=== PATIENT | male | born 1950 | race Caucasian/White ===

== ENCOUNTER 2019-01-07 20:14 | Inpatient (IN) ==
[2019-01-07] MEDS ORDERED: SOLU-Medrol 40 MG VIAL IM ONE (20:32)
[2019-01-07] MEDS ORDERED: DUONEB 0.5 MG/3 MG NEB ONE (20:32)
[2019-01-07] MEDS ORDERED: SOLU-Medrol 40 MG VIAL ONE (20:38)
--- NOTE | 2019-01-07 20:42 | DR.SOBA ---
HPI Time Seen Time Seen by Provider: 01/07/19 20:25 Primary Care Physician Primary Care Physician: RAFAEL TRACY Complaints Chief Complaint Doctors Comments: a 68 Y/O male presenting with worsening SOB since 2 days ago. He denies cough or fever. He states he feels week. He admits to 2 tarry stools in last 2 days. He denies dizziness. Chief Complaint:: PT STATED HE HAS EVERDAY SINUS ISSUES. SINCE WENSDAY OF THIS WEEK HE HAS BEEN HAVING PRESSURE IN HIS CHEST AND SOB. HE STATED TODAY THE SYMPTOMS HAVE WORSEN. Reviewed Nurses Notes Reviewed: Yes Source History Provided: Patient Mode of Arrival Mode of Arrival: Wheelchair Timing Onset of Chief Complaint: 12/28/18 Context Onset:: With Light Exertion PE Risk Factors:: None History of:: None Currently on:: Neither Prehospital Care:: None Modifying Factors Worsens:: Exertion Improves:: Rest Associated Signs and Symptoms Associated Signs and Symptoms: None PMH PMH Past Medical History: Yes Past Medical History: Arthritis and Hypertension Past Surgical History: Yes Past Surgical History Comment: HEART CATHERIZATION Family History History of Family Medical Conditions: Yes Family Medical History: Hypertension Social History Does patient currently use any type of tobacco product: Yes Have you used tobacco products in the last 12 months: Yes Type of Tobacco Use: Cigarettes Does any household member use tobacco: No Alcohol Use: Occasionally Do you use any recreational Drugs:: No Lives With: Spouse Lives Where: Home infectious screening In the last 2 months have you had wt loss of >10#?: NO Have you had fever, night sweats or hemotysis?: No Have you traveled outside the country in the last 6 months?: No Isolation: Standard ROS Review of Systems Constitutional: No Symptoms Reported Eyes: No Symptoms Reported ENTM: No Symptoms Reported Respiratoy: Short of Breath Cardiovascular: No Symptoms Reported Gastrointestinal/Abdominal: No Symptoms Reported Genitourinary: No Symptoms Reported Neurological: No Symptoms Reported Musculoskeletal: No Symptoms Reported Integumentary: No Symptoms Reported Hematologic/Lymphatic: No Symptoms Reported Endocrine: No Symptoms Reported Psychiatric: No Symptoms Reported PE Vital Signs Vitals: Temperature 97.9 F Pulse Rate 77 Respiratory Rate 20 Blood Pressure 168/79 O2 Sat by Pulse Oximetry 100 General Limitations: No Limitations General Appearance: Alert and In No Apparent Distress Head Head Exam: Normal Inspection, Atraumatic and Normocephalic Eyes Eye exam: Normal Appearance and EOMI ENT ENT Exam: Normal Exam, Normal Oropharynx, Mucous Membranes Moist and Other (No sinus tenderness elicited with percussion. There is no nasal mucosa swelling or rhinorrhea. ) Neck Neck Exam: Normal Inspection, Full ROM and Trachea Midline Chest Chest Inspection: Normal Inspection and Symmetric Chest Wall Rise Respiratory Respiratory Exam: Normal Lung Sounds Bilat Cardiovascular Cardiovascular Exam: Regular Rate, Normal Rhythm, +S1 and +S2 Abdominal Exam Abdominal Exam: Normal Inspection, Normal Bowel Sounds and Soft Extremities Extremities Exam: Normal Inspection and Full ROM Back Back Exam: Normal Inspection and Full ROM Neurologic Neurological Exam: Alert, Oriented X3 and Normal Gait Psychiatric Psychiatric Exam: Normal Affect and Normal Mood Skin Skin Exam: Dry and Normal Color ROR Labs Reviewed Result Diagrams: 01/07/19 20:52 01/07/19 20:52 Laboratory: WBC 8.7 X10^3/uL (3.6-10.0) 01/07/19 20:52 RBC 2.32 X10^6/uL (4.7-6.0) L 01/07/19 20:52 Hgb 5.1 g/dL (13.5-18.0) L* 01/07/19 20:52 Hct 16.1 % (42.0-54.0) L* 01/07/19 20:52 MCV 69.5 fL (80.0-100.0) L 01/07/19 20:52 MCH 22.0 pg (27.0-34.0) L 01/07/19 20:52 MCHC 31.6 g/dL (33.0-35.0) L 01/07/19 20:52 RDW 19.2 % (11.6-16.5) H 01/07/19 20:52 Plt Count 227 X10^3/uL (150.0-450.0) 01/07/19 20:52 Plt Count Comment Adequate (ADEQUATE) 01/07/19 20:52 MPV 7.6 fL (7.4-11.0) 01/07/19 20:52 Neut % (Auto) 78.6 % (42.0-75.0) H 01/07/19 20:52 Lymph % (Auto) 14.2 % (21.0-51.0) L 01/07/19 20:52 [place] % (Auto) 5.9 % (0.0-13.0) 01/07/19 20:52 Eos % (Auto) 0.6 % (0.9-2.9) L 01/07/19 20:52 Baso % (Auto) 0.7 % (0.2-1.0) 01/07/19 20:52 Neut # (Auto) 6.8 x10^3/uL (2.2-4.8) H 01/07/19 20:52 Lymph # (Auto) 1.2 X10^3/uL (1.3-2.9) L 01/07/19 20:52 [place] # (Auto) 0.5 x10^3/uL (0.3-0.8) 01/07/19 20:52 Eos # (Auto) 0.1 x10^3/uL (0.0-0.2) 01/07/19 20:52 Baso # (Auto) 0.1 X10^3/uL (0.0-0.1) 01/07/19 20:52 Absolute Nucleated RBC 0.9 /100WBC 01/07/19 20:52 Plt Morphology Comment Normal (NORMAL) 01/07/19 20:52 RBC Morphology Abnormal (NORMAL) 01/07/19 20:52 Hypochromasia 1+ A 01/07/19 20:52 Anisocytosis Slight A 01/07/19 20:52 Microcytosis 1+ A 01/07/19 20:52 Sodium 140 mmol/L (136-145) 01/07/19 20:52 Corrected Sodium TNP 01/07/19 20:52 Potassium 3.8 mmol/L (3.5-5.1) 01/07/19 20:52 Chloride 105 mmol/L (98-107) 01/07/19 20:52 Carbon Dioxide 23.4 mmol/L (21-32) 01/07/19 20:52 BUN 22 mg/dL (7-18) H 01/07/19 20:52 Creatinine 0.91 mg/dL (0.70-1.30) 01/07/19 20:52 Est GFR (MDRD) Af Amer > 60 (>60) 01/07/19 20:52 Est GFR (MDRD) Non-Af > 60 (>60) 01/07/19 20:52 Glucose 101 mg/dL (65-99) H 01/07/19 20:52 Calcium 8.6 mg/dL (8.5-10.1) 01/07/19 20:52 Corrected Calcium TNP 01/07/19 20:52 Total Bilirubin 0.20 mg/dL (0.2-1.0) 01/07/19 20:52 AST 26 Units/L (15-37) 01/07/19 20:52 ALT 14 Units/L (12-78) 01/07/19 20:52 Alkaline Phosphatase 56 Units/L (46-116) 01/07/19 20:52 Creatine Kinase 82 Units/L (39-308) 01/07/19 20:52 CK-MB (CK-2) 2.2 ng/mL (0-4.0) 01/07/19 20:52 CK/CKMB % Calc 2.7 % (<4) 01/07/19 20:52 Troponin I 0.33 ng/mL (0-1.5) 01/07/19 20:52 Total Protein 6.1 g/dL (6.4-8.2) L 01/07/19 20:52 Albumin 3.4 g/dL (3.4-5.0) 01/07/19 20:52 Globulin 2.7 g/dL (2.5-4.5) 01/07/19 20:52 Albumin/Globulin Ratio 1.3 Ratio (1.1-2.1) 01/07/19 20:52 Stool Description Fob tube 01/07/19 21:08 Stl Occult Blood (IFOB) Negative (NEGATIVE) 01/07/19 21:08 Opioid Opioid Risk Tool Total: 0 Total Score Risk Category: Low Risk Copyright: Yeyo GALAN predicting aberrant behaviors Diagnosis Discharge Problem: Hypochromic microcytic anemia, Azotemia Instructions Instructions: Anemia
[2019-01-07] MEDS ORDERED: DUONEB 0.5 MG/3 MG ONE (20:46)
[2019-01-07 21:00] LABS: BASOPHILS # (AUTO) 0.1 X10^3/uL (0.0-0.1); BASOPHILS % (AUTO) 0.7 % (0.2-1.0); EOSINOPHILS # (AUTO) 0.1 x10^3/uL (0.0-0.2); EOSINOPHILS % (AUTO) 0.6 % (0.9-2.9); LYMPHOCYTES # (AUTO) 1.2 X10^3/uL (1.3-2.9); LYMPHOCYTES % (AUTO) 14.2 % (21.0-51.0); MEAN CORPUSCULAR HGB CONC 31.6 g/dL (33.0-35.0); MEAN CORPUSCULAR VOLUME 69.5 fL (80.0-100.0); MEAN PLATELET VOLUME 7.6 fL (7.4-11.0); MONOCYTES # (AUTO) 0.5 x10^3/uL (0.3-0.8); MONOCYTES % (AUTO) 5.9 % (0.0-13.0); NEUTROPHILS # (AUTO) 6.8 x10^3/uL (2.2-4.8); NEUTROPHILS % (AUTO) 78.6 % (42.0-75.0); PLATELET COUNT 227 X10^3/uL (150.0-450.0); RED BLOOD COUNT 2.32 X10^6/uL (4.7-6.0); RED CELL DISTRIBUTION WIDTH 19.2 % (11.6-16.5); WHITE BLOOD COUNT 8.7 X10^3/uL (3.6-10.0)
[2019-01-07 21:15] LABS: BLOOD UREA NITROGEN 22 mg/dL (7-18); CALCIUM 8.6 mg/dL (8.5-10.1); CARBON DIOXIDE 23.4 mmol/L (21-32); CHLORIDE 105 mmol/L (98-107); CREATININE 0.91 mg/dL (0.70-1.30); SODIUM 140 mmol/L (136-145); TROPONIN I 0.33 ng/mL (0-1.5); eGFR NON BLACK RACES > 60 (>60)
[2019-01-07 21:19] LABS: HEMATOCRIT 16.1 % (42.0-54.0); HEMOGLOBIN 5.1 g/dL (13.5-18.0)
[2019-01-07 21:20] LABS: ALANINE AMINOTRANSFERASE 14 Units/L (12-78); ALBUMIN 3.4 g/dL (3.4-5.0); ALKALINE PHOSPHATASE 56 Units/L (46-116); ANISOCYTOSIS SLIGHT; ASPARTATE AMINO TRANSFERASE 26 Units/L (15-37); CKMB % 2.7 % (<4); CREATINE KINASE 82 Units/L (39-308); CREATINE KINASE MB 2.2 ng/mL (0-4.0); HYPOCHROMASIA 1+; MICROCYTOSIS 1+; PLATELET MORPHOLOGY COMMENT NORMAL (NORMAL); TOTAL PROTEIN 6.1 g/dL (6.4-8.2)
[2019-01-07] MEDS ORDERED: NS 500 ML IV 500 ML IV ONE ×2 (22:02→22:10)
[2019-01-07] MEDS ORDERED: CATAPRES TAB 0.1 MG PO PRN (23:05)
[2019-01-07] MEDS ORDERED: CATAPRES TAB 0.1 MG PO ONE ×2 (23:05→23:15)
[2019-01-07] MEDS ORDERED: CATAPRES TAB 0.1 MG ONE (23:06)
[2019-01-07 23:19] LABS: IRON 10 ug/dL (50-175)
[2019-01-08] MEDS: TYLENOL 325 MG TAB PO PRN ×2 (00:07→11:08)
[2019-01-08] MEDS: BENADRYL INJ 50 MG VIAL IVP PRN ×2 (00:10→11:09)
[2019-01-08 02:13] VITALS: BMI 27.8
--- NOTE | 2019-01-08 04:09 | RAD ---
Chest, 1 view Indication: Shortness of breath, chest pressure Comparison: None Findings: Cardiac silhouette is unremarkable. The lungs are essentially clear without focal infiltrates or pleural effusion. Impression: No acute chest process. Reported By:
[2019-01-08] MEDS ORDERED: PREVNAR 13 IM ONE (06:00)
[2019-01-08] MEDS ORDERED: AFLURIA II4 or FLUARIX II4 IM ONE (06:00)
[2019-01-08 06:06] LABS: BASOPHILS % (AUTO) 0.1 % (0.2-1.0); HEMATOCRIT 20.6 % (42.0-54.0); LYMPHOCYTES # (AUTO) 0.3 X10^3/uL (1.3-2.9); LYMPHOCYTES % (AUTO) 4.3 % (21.0-51.0); MEAN CORPUSCULAR HEMOGLOBIN 24.6 pg (27.0-34.0); MEAN CORPUSCULAR HGB CONC 32.9 g/dL (33.0-35.0); MEAN CORPUSCULAR VOLUME 74.6 fL (80.0-100.0); MONOCYTES # (AUTO) 0.1 x10^3/uL (0.3-0.8); MONOCYTES % (AUTO) 0.9 % (0.0-13.0); NEUTROPHILS # (AUTO) 7.2 x10^3/uL (2.2-4.8); NEUTROPHILS % (AUTO) 94.7 % (42.0-75.0); PLATELET COUNT 186 X10^3/uL (150.0-450.0); RED BLOOD COUNT 2.75 X10^6/uL (4.7-6.0); RED CELL DISTRIBUTION WIDTH 24.1 % (11.6-16.5); WHITE BLOOD COUNT 7.6 X10^3/uL (3.6-10.0)
[2019-01-08 06:12] LABS: ALANINE AMINOTRANSFERASE 11 Units/L (12-78); ALBUMIN 3.3 g/dL (3.4-5.0); ALKALINE PHOSPHATASE 58 Units/L (46-116); ASPARTATE AMINO TRANSFERASE 29 Units/L (15-37); BLOOD UREA NITROGEN 20 mg/dL (7-18); CALCIUM 8.3 mg/dL (8.5-10.1); CARBON DIOXIDE 21.5 mmol/L (21-32); CHLORIDE 106 mmol/L (98-107); CKMB % 1.9 % (<4); COR CA(FOR HYPOALB) 8.9 mg/dL (8.5-10.1); COR NA(FOR HYPERGLY) 140 mmol/L (136-145); CREATINE KINASE 93 Units/L (39-308); CREATINE KINASE MB 1.8 ng/mL (0-4.0); CREATININE 0.86 mg/dL (0.70-1.30); SODIUM 138 mmol/L (136-145); TOTAL PROTEIN 6.2 g/dL (6.4-8.2); TROPONIN I 0.17 ng/mL (0-1.5); eGFR NON BLACK RACES > 60 (>60)
[2019-01-08 06:16] LABS: HEMOGLOBIN 6.8 g/dL (13.5-18.0)
[2019-01-08 06:20] LABS: PLATELET MORPHOLOGY COMMENT NORMAL (NORMAL)
[2019-01-08 06:21] LABS: ANISOCYTOSIS 3+; HYPOCHROMASIA SLIGHT; MICROCYTOSIS SLIGHT
[2019-01-08] MEDS ORDERED: NS 500 ML IV 500 ML IV PRN (10:42)
[2019-01-08] MEDS: PROTONIX INJ 40 MG VIAL IVP SCH ×2 (11:08→21:07)
[2019-01-08] MEDS ORDERED: NS 100 ML IV 100 ML with VENOFER 400 MG IV NR ×2 (12:00)
--- NOTE | 2019-01-08 12:56 | RAD ---
History: Normal chest Exam: Portable chest Comparison: None Technique: AP chest was obtained Findings: The heart is mildly enlarged. The pulmonary vessels are normal. The lungs are mildly hyperinflated and emphysematous. There is overlying EKG lead artifact. No obvious consolidation or effusion is seen. IMPRESSION: Mild cardiomegaly. Chronic obstructive lung changes with no acute pulmonary abnormality. Reported By:
--- NOTE | 2019-01-08 13:19 | DR.H&P ---
H&P - History & Physical for Day of: H&P Date: 01/07/19 - Chief Complaint Chief Complaint: WEAKNESS, SOB, TARRY STOOL - History of Present Illness History of Present Illness: PT IS 68 WM ER ADMISSION AFTER PRESENTING WTIH CO SEVERE WEAKNESS AND SOB. PT STATES HE BEEN FEELING WEAK FOR SEVERAL DAYS, BECAME EXTREMLY SOB AND WEAK SCREEN TENDER. PT STATES HE HAS HAD BLACK TARRY STOOL LEAST 2 EPISODES. PT REPORTS HX OF OA, DOES TAKE OTC NSAIDS AND GOODY POWDER PRN. PT DENIES ANY PMH OF CAD OR DM. HGB 5.1 ON ARRIVAL TO ER. PT ADMITTED FOR TREATMEN AND EVALUATION OF ACUTE ILLNESS R/O GI BLEED. - Past Medical History Past Medical History: Hypertension, Arthritis - Past Surgical History Surgical History: Lithotripsy, Other - Family History Family Medical History: Hypertension - Social History Does patient currently use any type of tobacco product: Yes Have you used tobacco products in the last 12 months: Yes Type of Tobacco Use: Cigarettes How many years tobacco product used: 50 Does any household member use tobacco: No Alcohol Use: DAILY Drug Use: None - Medications Home Medications: No Known Drug Allergies Allergy (Verified 01/07/19 20:28) CONTINUE taking the following medications amlodipine 5 mg PO DAILY 01/08/19 [History] clonazepam 0.5 mg PO HS 01/08/19 [History] fenofibrate 160 mg PO DAILY 01/08/19 [History] meloxicam 15 mg PO DAILY 01/08/19 [History] trazodone 50 mg PO HS 01/08/19 [History] venlafaxine 150 mg PO DAILY 01/08/19 [History] - Review of Systems Constitutional: Weakness Eyes: No Symptoms Reported ENT: No Symptoms Reported Respiratory: Shortness of Breath, SOB with Excertion Cardiovascular: Chest Pain, Light Headedness. denies: Edema Gastrointestinal: Nausea, Melena Genitourinary: No Symptoms Reported Musculoskeletal: Leg Pain (HIP PAIN) Skin: No Symptoms Reported Neurological: Weakness - Physical Exam Vital Signs: Temperature 98.1 F Pulse Rate [Right Brachial] 84 Pulse Rate [Left Brachial] 77 Pulse Rate 79 Respiratory Rate 20 Blood Pressure [Right Arm] 137/77 Blood Pressure [Left Arm] 136/70 Blood Pressure 180/79 O2 Sat by Pulse Oximetry 100 Oriented: Normal Eyes: Normal Ear: Normal Nose: Normal Throat: Normal Respiratory: RLL Diminished, LLL Diminished Cardiovascular: Tachycardia. negative: Edema : Normal Auscultation: Bowel Sounds: Normal Palpation: Normal Tenderness: RUQ, Epigastric Skin: Decreased Turgur Musculoskeletal: Right, Left, Hip Psychiatric: Anxiety Affect: Anxious Speech Pattern: Clear, Appropriate - Assessment/Plan (1) Anemia Status: Acute Plan: ADMIT, NPO AFTER MIDNIGHT. GENTLE IV HYDRATION, TYPE CROSS MATCH AND TRANSFUSE 2 U PRBC. ANEMIA PANEL ON ADMISSION, OCCULT STOOL ORDERED. PROTONIX 40MG IV BID. VERIFY HOME MEDICATION, CXR ON ADMISSION, SUPPLEMENTAL O2, CARDIAC MONITORING (2) GI bleed Status: Acute (3) Hypertension Status: Acute (4) Shortness of breath Status: Acute (5) Hypochromic microcytic anemia Status: Acute - Allergies Allergies/Adverse Reactions: Allergies Allergy/AdvReac Type Severity Reaction Status Date / Time No Known Drug Allergies Allergy Verified 01/07/19 20:28
--- NOTE | 2019-01-08 13:25 | PCM.PROG ---
Progress Note - Progress Note for Day of Date of Exam: 01/08/19 - Subjective Subjective: 68 WM ER ADMISSION WITH SYMPTOMATIC ANEMIA AND CO BLACK TARRY STOOL. PT HGB 5.1 ON ARRIVAL, SP 2 UNITS PRBC ON ADMISSION WITH HGB 6.8 THIS AM. PLAN TO REPEAT TRANSFUSION, CXR WITHOUT ACUTE FINDINGS. PT CONTINUE TO CO SOB ON MINIMAL EXERTION. REPEAT CE THIS AM. PT ON SUPPLEMENTAL O2. DENIES NAUSEA OR VOMITING. PT IS NPO FOR UPPER GI THIS AM PER DR RUIZ. PT IS CURRENTLY ON IV PROTONIX 4OMG IV BID. - Past Medical Family Social History Past Med/Fam/Surg Hx: No changes since H&P Allergies: Allergies No Known Drug Allergies Allergy (Verified 01/07/19 20:28) - Review of Systems ROS: No change since H&P - Vital Signs and I&O's Vital Signs: Temperature 98.1 F Pulse Rate [Right Brachial] 84 Pulse Rate [Left Brachial] 77 Pulse Rate 79 Respiratory Rate 20 Blood Pressure [Right Arm] 137/77 Blood Pressure [Left Arm] 136/70 Blood Pressure 180/79 O2 Sat by Pulse Oximetry 100 Intake and Output: Intake & Output 01/06/19 01/07/19 01/08/19 01/09/19 11:59 11:59 11:59 11:59 Intake Total 1530 / 1530 Balance 1530 / 1530 - Physical Exam Oriented: Normal Eyes: Normal Ear: Normal Nose: Normal Throat: Normal Cardiovascular: Tachycardia. negative: Edema : Normal Auscultation: Bowel Sounds: Normal Tenderness: RUQ, Epigastric Skin: Decreased Turgur Musculoskeletal: Right, Left, Hip Psychiatric: Anxiety Affect: Anxious Speech Pattern: Clear, Appropriate - Laboratory and Diagnostics Result Diagrams: 01/08/19 05:17 01/08/19 05:17 Labs: Laboratory WBC 7.6 X10^3/uL (3.6-10.0) 01/08/19 05:17 RBC 2.75 X10^6/uL (4.7-6.0) L 01/08/19 05:17 Hgb 6.8 g/dL (13.5-18.0) L* 01/08/19 05:17 Hct 20.6 % (42.0-54.0) L 01/08/19 05:17 MCV 74.6 fL (80.0-100.0) L 01/08/19 05:17 MCH 24.6 pg (27.0-34.0) L 01/08/19 05:17 MCHC 32.9 g/dL (33.0-35.0) L 01/08/19 05:17 RDW 24.1 % (11.6-16.5) H 01/08/19 05:17 Plt Count 186 X10^3/uL (150.0-450.0) 01/08/19 05:17 Plt Count Comment Adequate (ADEQUATE) 01/08/19 05:17 MPV 8.0 fL (7.4-11.0) 01/08/19 05:17 Neut % (Auto) 94.7 % (42.0-75.0) H 01/08/19 05:17 Lymph % (Auto) 4.3 % (21.0-51.0) L 01/08/19 05:17 [place] % (Auto) 0.9 % (0.0-13.0) 01/08/19 05:17 Eos % (Auto) 0.0 % (0.9-2.9) L 01/08/19 05:17 Baso % (Auto) 0.1 % (0.2-1.0) L 01/08/19 05:17 Neut # (Auto) 7.2 x10^3/uL (2.2-4.8) H 01/08/19 05:17 Lymph # (Auto) 0.3 X10^3/uL (1.3-2.9) L 01/08/19 05:17 [place] # (Auto) 0.1 x10^3/uL (0.3-0.8) L 01/08/19 05:17 Eos # (Auto) 0.0 x10^3/uL (0.0-0.2) 01/08/19 05:17 Baso # (Auto) 0.0 X10^3/uL (0.0-0.1) 01/08/19 05:17 Absolute Nucleated RBC 0.3 /100WBC 01/08/19 05:17 Total Counted 100 01/08/19 05:17 Neutrophils % (Manual) 95 % (39-76) H 01/08/19 05:17 Lymphocytes % (Manual) 4 % (13-43) L 01/08/19 05:17 Monocytes % (Manual) 1 % (4-9) L 01/08/19 05:17 Plt Morphology Comment Normal (NORMAL) 01/08/19 05:17 RBC Morphology Abnormal (NORMAL) 01/08/19 05:17 Hypochromasia Slight A 01/08/19 05:17 Anisocytosis 3+ A 01/08/19 05:17 Microcytosis Slight A 01/08/19 05:17 Sodium 138 mmol/L (136-145) 01/08/19 05:17 Corrected Sodium 140 mmol/L (136-145) 01/08/19 05:17 Potassium 4.1 mmol/L (3.5-5.1) 01/08/19 05:17 Chloride 106 mmol/L (98-107) 01/08/19 05:17 Carbon Dioxide 21.5 mmol/L (21-32) 01/08/19 05:17 BUN 20 mg/dL (7-18) H 01/08/19 05:17 Creatinine 0.86 mg/dL (0.70-1.30) 01/08/19 05:17 Est GFR (MDRD) Af Amer > 60 (>60) 01/08/19 05:17 Est GFR (MDRD) Non-Af > 60 (>60) 01/08/19 05:17 Glucose 163 mg/dL (65-99) H 01/08/19 05:17 Calcium 8.3 mg/dL (8.5-10.1) L 01/08/19 05:17 Corrected Calcium 8.9 mg/dL (8.5-10.1) 01/08/19 05:17 Iron 10 ug/dL (50-175) L 01/07/19 20:52 Transferrin 351 mg/dL (202-364) 01/07/19 20:52 Ferritin 9 ng/mL (26-388) L 01/07/19 20:52 Total Bilirubin 0.40 mg/dL (0.2-1.0) 01/08/19 05:17 AST 29 Units/L (15-37) 01/08/19 05:17 ALT 11 Units/L (12-78) L 01/08/19 05:17 Alkaline Phosphatase 58 Units/L (46-116) 01/08/19 05:17 Creatine Kinase 93 Units/L (39-308) 01/08/19 05:17 CK-MB (CK-2) 1.8 ng/mL (0-4.0) 01/08/19 05:17 CK/CKMB % Calc 1.9 % (<4) 01/08/19 05:17 Troponin I 0.17 ng/mL (0-1.5) 01/08/19 05:17 Total Protein 6.2 g/dL (6.4-8.2) L 01/08/19 05:17 Albumin 3.3 g/dL (3.4-5.0) L 01/08/19 05:17 Globulin 2.9 g/dL (2.5-4.5) 01/08/19 05:17 Albumin/Globulin Ratio 1.1 Ratio (1.1-2.1) 01/08/19 05:17 Vitamin B12 350 pg/mL (193-986) 01/07/19 20:52 Folate > 20.0 ng/mL (>8.6) 01/07/19 20:52 Stool Description Fob tube 01/07/19 21:08 Stl Occult Blood (IFOB) Negative (NEGATIVE) 01/07/19 21:08 Blood Type O POSITIVE 01/07/19 22:15 Antibody Screen Negative 01/07/19 22:15 Crossmatch See Detail 01/07/19 22:15 - Plan (1) Anemia Status: Acute Plan: NPO AFTER MIDNIGHT FOR EGD THIS AM PER DR RUIZ. GENTLE IV HYDRATION, TYPE CROSS MATCH AND REPEAT TRANSFUSION 2 U PRBC. ANEMIA PANEL ON ADMISSION, WITH FE DEFICIT PLAN TO ADMINISTER IV IRON REPLACEMENT. OCCULT STOOL ORDERED. PROTONIX 40MG IV BID. VERIFY HOME MEDICATION, REPEAT CXR THIS AM, SUPPLEMENTAL O2, CARDIAC MONITORING (2) GI bleed Status: Acute (3) Hypertension Status: Acute (4) Shortness of breath Status: Acute (5) Hypochromic microcytic anemia Status: Acute
[2019-01-08] MEDS ORDERED: DIPRIVAN VIAL 20 ML ONE (13:41)
[2019-01-08] MEDS ORDERED: DIPRIVAN VIAL ONE (14:42)
[2019-01-08 16:03] LABS: HEMOGLOBIN 7.8 g/dL (13.5-18.0)
[2019-01-08] MEDS: NICOTINE PATCH TD SCH (21:07)
[2019-01-08] MEDS: KLONOPIN TAB 0.5 MG PO SCH (21:07)
[2019-01-09 05:23] LABS: BASOPHILS # (AUTO) 0.1 X10^3/uL (0.0-0.1); BASOPHILS % (AUTO) 0.6 % (0.2-1.0); EOSINOPHILS # (AUTO) 0.1 x10^3/uL (0.0-0.2); EOSINOPHILS % (AUTO) 1.1 % (0.9-2.9); HEMATOCRIT 22.4 % (42.0-54.0); HEMOGLOBIN 7.4 g/dL (13.5-18.0); LYMPHOCYTES # (AUTO) 1.8 X10^3/uL (1.3-2.9); LYMPHOCYTES % (AUTO) 20.3 % (21.0-51.0); MEAN CORPUSCULAR HEMOGLOBIN 24.8 pg (27.0-34.0); MEAN CORPUSCULAR HGB CONC 32.9 g/dL (33.0-35.0); MEAN CORPUSCULAR VOLUME 75.4 fL (80.0-100.0); MEAN PLATELET VOLUME 7.6 fL (7.4-11.0); MONOCYTES # (AUTO) 0.6 x10^3/uL (0.3-0.8); MONOCYTES % (AUTO) 6.6 % (0.0-13.0); NEUTROPHILS # (AUTO) 6.2 x10^3/uL (2.2-4.8); NEUTROPHILS % (AUTO) 71.4 % (42.0-75.0); PLATELET COUNT 182 X10^3/uL (150.0-450.0); RED BLOOD COUNT 2.97 X10^6/uL (4.7-6.0); RED CELL DISTRIBUTION WIDTH 22.4 % (11.6-16.5); WHITE BLOOD COUNT 8.8 X10^3/uL (3.6-10.0)
[2019-01-09 05:35] LABS: ALANINE AMINOTRANSFERASE 13 Units/L (12-78); ALBUMIN 3.2 g/dL (3.4-5.0); ALKALINE PHOSPHATASE 57 Units/L (46-116); ASPARTATE AMINO TRANSFERASE 22 Units/L (15-37); BLOOD UREA NITROGEN 19 mg/dL (7-18); CALCIUM 8.2 mg/dL (8.5-10.1); CARBON DIOXIDE 27.9 mmol/L (21-32); CHLORIDE 108 mmol/L (98-107); COR CA(FOR HYPOALB) 8.8 mg/dL (8.5-10.1); CREATININE 0.95 mg/dL (0.70-1.30); SODIUM 142 mmol/L (136-145); TOTAL PROTEIN 6.1 g/dL (6.4-8.2); eGFR NON BLACK RACES > 60 (>60)
[2019-01-09 05:56] LABS: CKMB % 1.8 % (<4); CREATINE KINASE MB 1.4 ng/mL (0-4.0); TROPONIN I 0.28 ng/mL (0-1.5)
[2019-01-09 06:32] LABS: HYPOCHROMASIA SLIGHT; PLATELET MORPHOLOGY COMMENT NORMAL (NORMAL)
[2019-01-09 06:33] LABS: ANISOCYTOSIS 2+
[2019-01-09] MEDS: NICOTINE PATCH TD SCH ×2 (10:36→21:30)
[2019-01-09] MEDS: PROTONIX INJ 40 MG VIAL IVP SCH ×2 (10:36→21:29)
[2019-01-09] MEDS: EFFEXOR XR 150 MG CAP PO SCH (11:39)
[2019-01-09 12:04] LABS: BASOPHILS # (AUTO) 0.1 X10^3/uL (0.0-0.1); BASOPHILS % (AUTO) 1.1 % (0.2-1.0); EOSINOPHILS # (AUTO) 0.1 x10^3/uL (0.0-0.2); EOSINOPHILS % (AUTO) 1.4 % (0.9-2.9); HEMOGLOBIN 7.5 g/dL (13.5-18.0); LYMPHOCYTES # (AUTO) 1.2 X10^3/uL (1.3-2.9); LYMPHOCYTES % (AUTO) 15.9 % (21.0-51.0); MEAN CORPUSCULAR HEMOGLOBIN 24.9 pg (27.0-34.0); MEAN CORPUSCULAR HGB CONC 32.7 g/dL (33.0-35.0); MEAN CORPUSCULAR VOLUME 76.1 fL (80.0-100.0); MEAN PLATELET VOLUME 7.4 fL (7.4-11.0); MONOCYTES # (AUTO) 0.4 x10^3/uL (0.3-0.8); MONOCYTES % (AUTO) 5.6 % (0.0-13.0); NEUTROPHILS # (AUTO) 5.9 x10^3/uL (2.2-4.8); PLATELET COUNT 197 X10^3/uL (150.0-450.0); RED BLOOD COUNT 3.03 X10^6/uL (4.7-6.0); RED CELL DISTRIBUTION WIDTH 23.4 % (11.6-16.5); WHITE BLOOD COUNT 7.8 X10^3/uL (3.6-10.0)
[2019-01-09 12:23] LABS: CREATINE KINASE MB 1.5 ng/mL (0-4.0); TROPONIN I 0.22 ng/mL (0-1.5)
[2019-01-09 12:31] LABS: ANISOCYTOSIS 2+; HYPOCHROMASIA SLIGHT; PLATELET MORPHOLOGY COMMENT NORMAL (NORMAL); POIKILOCYTOSIS SLIGHT
[2019-01-09] MEDS: DUONEB 0.5 MG/3 MG NEB SCH ×3 (13:10→21:15)
[2019-01-09] MEDS: KLONOPIN TAB 0.5 MG PO SCH (21:29)
[2019-01-10 05:12] LABS: BASOPHILS # (AUTO) 0.1 X10^3/uL (0.0-0.1); EOSINOPHILS # (AUTO) 0.2 x10^3/uL (0.0-0.2); EOSINOPHILS % (AUTO) 2.5 % (0.9-2.9); HEMATOCRIT 21.5 % (42.0-54.0); LYMPHOCYTES # (AUTO) 1.3 X10^3/uL (1.3-2.9); LYMPHOCYTES % (AUTO) 19.9 % (21.0-51.0); MEAN CORPUSCULAR HEMOGLOBIN 24.7 pg (27.0-34.0); MEAN CORPUSCULAR HGB CONC 32.4 g/dL (33.0-35.0); MEAN CORPUSCULAR VOLUME 76.1 fL (80.0-100.0); MEAN PLATELET VOLUME 7.8 fL (7.4-11.0); MONOCYTES # (AUTO) 0.4 x10^3/uL (0.3-0.8); MONOCYTES % (AUTO) 5.8 % (0.0-13.0); NEUTROPHILS # (AUTO) 4.8 x10^3/uL (2.2-4.8); NEUTROPHILS % (AUTO) 70.8 % (42.0-75.0); PLATELET COUNT 175 X10^3/uL (150.0-450.0); RED BLOOD COUNT 2.83 X10^6/uL (4.7-6.0); RED CELL DISTRIBUTION WIDTH 23.9 % (11.6-16.5); WHITE BLOOD COUNT 6.7 X10^3/uL (3.6-10.0)
[2019-01-10 05:27] LABS: ALANINE AMINOTRANSFERASE 12 Units/L (12-78); ALBUMIN 3.1 g/dL (3.4-5.0); ALKALINE PHOSPHATASE 61 Units/L (46-116); ASPARTATE AMINO TRANSFERASE 23 Units/L (15-37); BLOOD UREA NITROGEN 14 mg/dL (7-18); CARBON DIOXIDE 25.2 mmol/L (21-32); CHLORIDE 107 mmol/L (98-107); COR CA(FOR HYPOALB) 8.7 mg/dL (8.5-10.1); CREATININE 0.78 mg/dL (0.70-1.30); SODIUM 141 mmol/L (136-145); TOTAL PROTEIN 5.8 g/dL (6.4-8.2); eGFR NON BLACK RACES > 60 (>60)
[2019-01-10 05:28] LABS: ANISOCYTOSIS 2+; HYPOCHROMASIA SLIGHT; MICROCYTOSIS SLIGHT; PLATELET MORPHOLOGY COMMENT NORMAL (NORMAL)
[2019-01-10] MEDS ORDERED: MAGNESIUM SULFATE 1 GRAM/100 mL PREMIX 1 GM/100 ML BAG IV PRN (05:34)
[2019-01-10] MEDS ORDERED: POTASSIUM CHL 60 MEQ/NS 0.45% 500 ML IV PRN (05:34)
[2019-01-10] MEDS ORDERED: K-RIDER 10 MEQ/NS 100 ML 10 MEQ/100 ML BAG IV PRN (05:34)
[2019-01-10] MEDS ORDERED: POTASSIUM CHLORIDE LIQ 20 MEQ UDC PO PRN (05:34)
[2019-01-10] MEDS ORDERED: MICRO K EXTEN CAP 10 MEQ PO PRN (05:34)
[2019-01-10] MEDS ORDERED: K-DUR TAB 20 MEQ PO PRN (05:34)
[2019-01-10] MEDS ORDERED: POTASSIUM CHL 40 MEQ/NS 0.45% 500 ML IV PRN (05:34)
[2019-01-10] MEDS: DUONEB 0.5 MG/3 MG NEB SCH ×3 (05:38→21:34)
[2019-01-10] MEDS: KLOR-CON PO PRN (06:43)
[2019-01-10] MEDS: PROTONIX INJ 40 MG VIAL IVP SCH ×2 (08:43→21:12)
[2019-01-10] MEDS: EFFEXOR XR 150 MG CAP PO SCH (08:43)
[2019-01-10] MEDS: NICOTINE PATCH TD SCH (08:44)
--- NOTE | 2019-01-10 09:45 | RAD ---
HISTORY: Shortness of breath Study: PA and lateral views of the chest Comparison: 01/08/2019 Findings: Chronic interstitial changes are present, possibly related to underlying COPD or interstitial lung disease. Ill-defined opacities seen in the right upper lobe for which developing infiltrate is not excluded. No effusion or pneumothorax. The cardiac and mediastinal contours are within normal limits. The soft tissues are unremarkable. IMPRESSION: 1. Ill-defined right upper lobe opacity, possibly developing infiltrate. Correlate for pneumonia. 2. Chronic interstitial changes possibly related to underlying COPD or interstitial lung disease. Reported By:
[2019-01-10 10:08] LABS: CKMB % 2.4 % (<4); CREATINE KINASE MB 1.1 ng/mL (0-4.0); TROPONIN I 0.13 ng/mL (0-1.5)
[2019-01-10] MEDS ORDERED: NS 250 ML IV 250 ML IV ONE (11:31)
[2019-01-10] MEDS: BENADRYL INJ 50 MG VIAL IVP PRN (11:40)
[2019-01-10] MEDS: TYLENOL 325 MG TAB PO PRN (11:41)
[2019-01-10] MEDS ORDERED: LASIX IVP ONE (18:15)
[2019-01-10 18:47] LABS: HEMATOCRIT 27.7 % (42.0-54.0); HEMOGLOBIN 9.2 g/dL (13.5-18.0)
[2019-01-10] MEDS: KLONOPIN TAB 0.5 MG PO SCH (21:12)
[2019-01-11 04:40] LABS: BASOPHILS # (AUTO) 0.1 X10^3/uL (0.0-0.1); BASOPHILS % (AUTO) 0.9 % (0.2-1.0); EOSINOPHILS # (AUTO) 0.2 x10^3/uL (0.0-0.2); EOSINOPHILS % (AUTO) 3.2 % (0.9-2.9); HEMATOCRIT 27.2 % (42.0-54.0); LYMPHOCYTES # (AUTO) 1.2 X10^3/uL (1.3-2.9); LYMPHOCYTES % (AUTO) 16.7 % (21.0-51.0); MEAN CORPUSCULAR HEMOGLOBIN 26.5 pg (27.0-34.0); MEAN CORPUSCULAR HGB CONC 33.1 g/dL (33.0-35.0); MONOCYTES # (AUTO) 0.5 x10^3/uL (0.3-0.8); NEUTROPHILS # (AUTO) 5.2 x10^3/uL (2.2-4.8); NEUTROPHILS % (AUTO) 72.2 % (42.0-75.0); PLATELET COUNT 178 X10^3/uL (150.0-450.0); RED BLOOD COUNT 3.41 X10^6/uL (4.7-6.0); RED CELL DISTRIBUTION WIDTH 22.9 % (11.6-16.5); WHITE BLOOD COUNT 7.2 X10^3/uL (3.6-10.0)
[2019-01-11 04:48] LABS: ALANINE AMINOTRANSFERASE 17 Units/L (12-78); ALBUMIN 3.1 g/dL (3.4-5.0); ALKALINE PHOSPHATASE 72 Units/L (46-116); ASPARTATE AMINO TRANSFERASE 27 Units/L (15-37); BLOOD UREA NITROGEN 13 mg/dL (7-18); CALCIUM 8.4 mg/dL (8.5-10.1); CARBON DIOXIDE 31.4 mmol/L (21-32); CHLORIDE 107 mmol/L (98-107); COR CA(FOR HYPOALB) 9.1 mg/dL (8.5-10.1); CREATININE 0.81 mg/dL (0.70-1.30); SODIUM 143 mmol/L (136-145); eGFR NON BLACK RACES > 60 (>60)
[2019-01-11 05:19] LABS: PLATELET MORPHOLOGY COMMENT NORMAL (NORMAL)
[2019-01-11 05:20] LABS: ANISOCYTOSIS 2+
[2019-01-11] MEDS: KLOR-CON PO PRN (05:50)
[2019-01-11] MEDS: DUONEB 0.5 MG/3 MG NEB SCH ×3 (06:05→21:45)
[2019-01-11] MEDS: EFFEXOR XR 150 MG CAP PO SCH (08:33)
[2019-01-11] MEDS: PROTONIX INJ 40 MG VIAL IVP SCH ×2 (08:33→20:59)
[2019-01-11] MEDS: NICOTINE PATCH TD SCH (08:33)
--- NOTE | 2019-01-11 13:38 | CT ---
History: Weight loss and anemia and shortness of breath Study: CT chest after intravenous infusion of 100 mL Omnipaque 350. Sagittal and coronal reformations were provided. Axial soft tissue MIPS were provided. Dose reduction techniques were utilized. Comparison: None Findings: There are small pleural effusions, left smaller than right. The lungs are grossly clear. There is a 1.5 cm right hilar lymph node. There is a 2.3 cm retrocaval mediastinal lymph node. There are enlarged lymph nodes in the aortopulmonary window. There is mild subcarinal adenopathy. No pulmonary embolus is demonstrated. The visualized upper abdomen shows a 1.7 cm subcapsular low-attenuation liver lesion laterally. There is a right anterior chest wall dermal low-attenuation nodule measuring up to 2.35 cm transverse diameter, likely a sebaceous cyst. There is no axillary adenopathy. There is a tiny cyst in the upper pole of the right kidney. There are mild degenerative changes in the spine. No pulmonary embolus is demonstrated. Impression: 1. Small pleural effusions right more prominent than left 2. No evidence for pneumonia 3. Mild right hilar and mediastinal adenopathy Reported By:
[2019-01-11] MEDS: HEMOCYTE-PLUS PO SCH (13:41)
--- NOTE | 2019-01-11 13:43 | CT ---
History: Weight loss and anemia Study: CT abdomen and pelvis after oral enhancement of the gastrointestinal tract and after intravenous infusion of 100 mL Omnipaque 350. Sagittal and coronal reformations were provided. Dose reduction techniques were utilized. Comparison: None Findings: There is small pleural effusions. There is a 1.5 cm water attenuation nodule subcapsular laterally in the right lobe of the liver. There is an 8 mm low-attenuation nodule more superiorly in ventrally in the right lobe of the liver. The spleen and pancreas and adrenal glands are unremarkable. There is a 1 cm cyst in the upper pole of the right kidney. There is no hydronephrosis. There is a 2.5 cm cyst ventrally in the lower pole of the left kidney. There is no ascites or adenopathy or aneurysm or bowel distention. There is mild sigmoid diverticulosis. The urinary bladder is unremarkable. The prostate gland is prominent. The appendix is normal. The gallbladder is unremarkable. There is no biliary dilatation. There are degenerative changes throughout the spine. Impression: Hepatic and renal cysts. No acute disease. Reported By:
[2019-01-11] MEDS: NORVASC TAB 5 MG PO SCH (13:57)
--- NOTE | 2019-01-11 17:38 | PCM.PROG ---
Progress Note - Progress Note for Day of Date of Exam: 01/10/19 - Subjective Subjective: Mr. Osorio is a 68-year-old white male who was an ER admission on 01/07/19, with severe symptomatic anemia with hemoglobin of 5.1 on admission, suspected GI bleed with reports of melanotic stool. The patient did receive 2 units of packed red blood cells prior to his EGD performed yesterday. He continued to be weak with shortness of breath and an unstable hemoglobin at 6.8 following 2 units. We repeated 1 unit of packed red blood cells yesterday afternoon and his hemoglobin was 7.0 this morning. Transfusion order for 2 units PRBC orderd for this am. Pt contiued with co weakness and sob. pt CXR revealed possible pneumonia. Pt had diffuse expiratory wheezes on exam.Pt started on IV rocephin, we will continue respiratory therapy. The patients renal function is stable. He has had serial cardiac enzymes, reviewed results with pt. I ordered a set for later. The patient did have an anemia panel as well with his iron being at 10 and he is status post iron infusion. Due to patients symptomatic anemia and GI bleed, he was taken urgently to surgery for an EGD per Dr. Hsieh. The patient was diagnosed with multiple antral ulcers, duodenitis, hiatal hernia, and diffuse gastritis. The patient is on Protonix two times a day. He will need serial hemoglobins ordered. The patient continues to complain of shortness of breath today but it is better at rest, worse on exertion. His EKG is showing sinus rhythm. - Past Medical Family Social History Past Med/Fam/Surg Hx: No changes since H&P Allergies: Allergies No Known Drug Allergies Allergy (Verified 01/07/19 20:28) - Review of Systems ROS: No change since H&P - Vital Signs and I&O's Vital Signs: Temperature 98.3 F Pulse Rate [Right Brachial] 76 Pulse Rate [Left Brachial] 79 Pulse Rate 82 Respiratory Rate 20 Blood Pressure [Right Arm] 189/88 Blood Pressure [Left Arm] 170/80 Blood Pressure 180/79 O2 Sat by Pulse Oximetry 96 Intake and Output: Intake & Output 01/09/19 01/10/19 01/11/19 01/12/19 11:59 11:59 11:59 11:59 Intake Total 757 / 757 1840 / 1840 1460 / 1460 Balance 757 / 757 0 / 1840 1460 / 1460 - Physical Exam Oriented: Normal Eyes: Normal Ear: Normal Nose: Normal Throat: Normal Respiratory: Diminished, Wheezes Cardiovascular: Tachycardia. negative: Edema : Normal Auscultation: Bowel Sounds: Normal Tenderness: RUQ, Epigastric Skin: Decreased Turgur Musculoskeletal: Right, Left, Hip Psychiatric: Anxiety Affect: Anxious Speech Pattern: Clear, Appropriate - Laboratory and Diagnostics Result Diagrams: 01/11/19 04:23 01/11/19 04:23 Labs: Laboratory WBC 7.2 X10^3/uL (3.6-10.0) 01/11/19 04:23 RBC 3.41 X10^6/uL (4.7-6.0) L 01/11/19 04:23 Hgb 9.0 g/dL (13.5-18.0) L 01/11/19 04:23 Hct 27.2 % (42.0-54.0) L 01/11/19 04:23 MCV 80.0 fL (80.0-100.0) 01/11/19 04:23 MCH 26.5 pg (27.0-34.0) L 01/11/19 04:23 MCHC 33.1 g/dL (33.0-35.0) 01/11/19 04:23 RDW 22.9 % (11.6-16.5) H 01/11/19 04:23 Plt Count 178 X10^3/uL (150.0-450.0) 01/11/19 04:23 Plt Count Comment Adequate (ADEQUATE) 01/11/19 04:23 MPV 8.0 fL (7.4-11.0) 01/11/19 04:23 Neut % (Auto) 72.2 % (42.0-75.0) 01/11/19 04:23 Lymph % (Auto) 16.7 % (21.0-51.0) L 01/11/19 04:23 [place] % (Auto) 7.0 % (0.0-13.0) 01/11/19 04:23 Eos % (Auto) 3.2 % (0.9-2.9) H 01/11/19 04:23 Baso % (Auto) 0.9 % (0.2-1.0) 01/11/19 04:23 Neut # (Auto) 5.2 x10^3/uL (2.2-4.8) H 01/11/19 04:23 Lymph # (Auto) 1.2 X10^3/uL (1.3-2.9) L 01/11/19 04:23 [place] # (Auto) 0.5 x10^3/uL (0.3-0.8) 01/11/19 04:23 Eos # (Auto) 0.2 x10^3/uL (0.0-0.2) 01/11/19 04:23 Baso # (Auto) 0.1 X10^3/uL (0.0-0.1) 01/11/19 04:23 Absolute Nucleated RBC 0.5 /100WBC 01/11/19 04:23 Total Counted 100 01/08/19 05:17 Neutrophils % (Manual) 95 % (39-76) H 01/08/19 05:17 Lymphocytes % (Manual) 4 % (13-43) L 01/08/19 05:17 Monocytes % (Manual) 1 % (4-9) L 01/08/19 05:17 Plt Morphology Comment Normal (NORMAL) 01/11/19 04:23 RBC Morphology Abnormal (NORMAL) 01/11/19 04:23 Hypochromasia Slight A 01/10/19 04:50 Poikilocytosis Slight A 01/09/19 11:54 Anisocytosis 2+ A 01/11/19 04:23 Microcytosis Slight A 01/10/19 04:50 Sodium 143 mmol/L (136-145) 01/11/19 04:23 Corrected Sodium TNP 01/11/19 04:23 Potassium 3.6 mmol/L (3.5-5.1) 01/11/19 04:23 Chloride 107 mmol/L (98-107) 01/11/19 04:23 Carbon Dioxide 31.4 mmol/L (21-32) 01/11/19 04:23 BUN 13 mg/dL (7-18) 01/11/19 04:23 Creatinine 0.81 mg/dL (0.70-1.30) 01/11/19 04:23 Est GFR (MDRD) Af Amer > 60 (>60) 01/11/19 04:23 Est GFR (MDRD) Non-Af > 60 (>60) 01/11/19 04:23 Glucose 98 mg/dL (65-99) 01/11/19 04:23 Calcium 8.4 mg/dL (8.5-10.1) L 01/11/19 04:23 Corrected Calcium 9.1 mg/dL (8.5-10.1) 01/11/19 04:23 Magnesium 2.0 mg/dL (1.7-2.9) 01/09/19 04:52 Iron 10 ug/dL (50-175) L 01/07/19 20:52 Transferrin 351 mg/dL (202-364) 01/07/19 20:52 Ferritin 9 ng/mL (26-388) L 01/07/19 20:52 Total Bilirubin 0.20 mg/dL (0.2-1.0) 01/11/19 04:23 AST 27 Units/L (15-37) 01/11/19 04:23 ALT 17 Units/L (12-78) 01/11/19 04:23 Alkaline Phosphatase 72 Units/L (46-116) 01/11/19 04:23 Creatine Kinase 45 Units/L (39-308) 01/10/19 09:24 CK-MB (CK-2) 1.1 ng/mL (0-4.0) 01/10/19 09:24 CK/CKMB % Calc 2.4 % (<4) 01/10/19 09:24 Troponin I 0.13 ng/mL (0-1.5) 01/10/19 09:24 Total Protein 6.0 g/dL (6.4-8.2) L 01/11/19 04:23 Albumin 3.1 g/dL (3.4-5.0) L 01/11/19 04:23 Globulin 2.9 g/dL (2.5-4.5) 01/11/19 04:23 Albumin/Globulin Ratio 1.1 Ratio (1.1-2.1) 01/11/19 04:23 Vitamin B12 350 pg/mL (193-986) 01/07/19 20:52 Folate > 20.0 ng/mL (>8.6) 01/07/19 20:52 Stool Description 200g soft dark brown 01/09/19 10:46 Stl Occult Blood (IFOB) Negative (NEGATIVE) 01/09/19 10:46 Tissue Pathology To follow 01/08/19 14:52 Blood Type O POSITIVE 01/07/19 22:15 Antibody Screen Negative 01/07/19 22:15 Crossmatch See Detail 01/07/19 22:15 - Plan (1) Anemia Status: Acute Plan: EGD PER DR HSIEH. GENTLE IV HYDRATION, TYPE CROSS MATCH AND REPEAT TRANSFUSION 2 U PRBC, ANEMIA PANEL ON ADMISSION, WITH FE DEFICIT WITH IRON REPLACEMENT CONTINUED. REPEAT OCCULT STOOL X3 ORDERED. PROTONIX 40MG IV BID. SUPPLEMENTAL O2, RESP CONSULT. CARDIAC MONITORING (2) GI bleed Status: Acute (3) Shortness of breath Status: Acute (4) Pneumonia Status: Acute Plan: RESP CONSULT, SUPPLEMENTAL O2. CT CHEST Q AM. SPUTUM CULTURE ORDERED, DUO NEBS. IV ROCEPHIN (5) Hypertension Status: Acute (6) Hypochromic microcytic anemia Status: Acute
--- NOTE | 2019-01-11 17:53 | PCM.PROG ---
Progress Note - Progress Note for Day of Date of Exam: 01/11/19 - Subjective Subjective: Mr. Osorio is a 68-year-old white male who was an ER admission on 01/07/19, with severe symptomatic anemia with hemoglobin of 5.1 on admission, suspected GI bleed with reports of melanotic stool. The patient did receive 2 units of packed red blood cells prior to his EGD performed yesterday. He continued to be weak with shortness of breath and an unstable hemoglobin s/p 5 units PRBC. The patient did have an anemia panel as well with his iron being at 10 and he is status post iron infusion. Due to patients symptomatic anemia and GI bleed, he was taken urgently to surgery for an EGD per Dr. Hsieh. The patient was diagnosed with multiple antral ulcers, duodenitis, hiatal hernia, a nd diffuse gastritis. The patient is on Protonix two times a day. He will need serial hemoglobins to insure stability and he patient continues to complain of shortness of breath today but it is better at rest, worse on exertion. His EKG is showing sinus rhythm. CXR revealing pneumonia. pt was started on rocephin IV, continue respiratory therapy. Pt given lasix IV following blood transfusion yest erday. Pt HGB 9.0 this am. Pt is NPO for CT scan. Generalized weakness and pallor continued. - Past Medical Family Social History Past Med/Fam/Surg Hx: No changes since H&P Allergies: Allergies No Known Drug Allergies Allergy (Verified 01/07/19 20:28) - Review of Systems ROS: No change since H&P - Vital Signs and I&O's Vital Signs: Temperature 98.3 F Pulse Rate [Right Brachial] 76 Pulse Rate [Left Brachial] 79 Pulse Rate 82 Respiratory Rate 20 Blood Pressure [Right Arm] 189/88 Blood Pressure [Left Arm] 170/80 Blood Pressure 180/79 O2 Sat by Pulse Oximetry 96 Intake and Output: Intake & Output 01/09/19 01/10/19 01/11/19 01/12/19 11:59 11:59 11:59 11:59 Intake Total 757 / 757 1840 / 1840 1460 / 1460 730 / 730 Balance 757 / 757 1840 / 1840 1460 / 1460 730 / 730 - Physical Exam Oriented: Normal Eyes: Normal Ear: Normal Nose: Normal Throat: Normal Respiratory: Diminished, Wheezes Cardiovascular: Tachycardia. negative: Edema : Normal Auscultation: Bowel Sounds: Normal Tenderness: Diffuse, RUQ, Epigastric Skin: Decreased Turgur, Other (diffuse pallor) Musculoskeletal: Right, Left, Hip Psychiatric: Anxiety Affect: Anxious Speech Pattern: Clear, Appropriate - Laboratory and Diagnostics Result Diagrams: 01/11/19 04:23 01/11/19 04:23 Labs: Laboratory WBC 7.2 X10^3/uL (3.6-10.0) 01/11/19 04:23 RBC 3.41 X10^6/uL (4.7-6.0) L 01/11/19 04:23 Hgb 9.0 g/dL (13.5-18.0) L 01/11/19 04:23 Hct 27.2 % (42.0-54.0) L 01/11/19 04:23 MCV 80.0 fL (80.0-100.0) 01/11/19 04:23 MCH 26.5 pg (27.0-34.0) L 01/11/19 04:23 MCHC 33.1 g/dL (33.0-35.0) 01/11/19 04:23 RDW 22.9 % (11.6-16.5) H 01/11/19 04:23 Plt Count 178 X10^3/uL (150.0-450.0) 01/11/19 04:23 Plt Count Comment Adequate (ADEQUATE) 01/11/19 04:23 MPV 8.0 fL (7.4-11.0) 01/11/19 04:23 Neut % (Auto) 72.2 % (42.0-75.0) 01/11/19 04:23 Lymph % (Auto) 16.7 % (21.0-51.0) L 01/11/19 04:23 [place] % (Auto) 7.0 % (0.0-13.0) 01/11/19 04:23 Eos % (Auto) 3.2 % (0.9-2.9) H 01/11/19 04:23 Baso % (Auto) 0.9 % (0.2-1.0) 01/11/19 04:23 Neut # (Auto) 5.2 x10^3/uL (2.2-4.8) H 01/11/19 04:23 Lymph # (Auto) 1.2 X10^3/uL (1.3-2.9) L 01/11/19 04:23 [place] # (Auto) 0.5 x10^3/uL (0.3-0.8) 01/11/19 04:23 Eos # (Auto) 0.2 x10^3/uL (0.0-0.2) 01/11/19 04:23 Baso # (Auto) 0.1 X10^3/uL (0.0-0.1) 01/11/19 04:23 Absolute Nucleated RBC 0.5 /100WBC 01/11/19 04:23 Total Counted 100 01/08/19 05:17 Neutrophils % (Manual) 95 % (39-76) H 01/08/19 05:17 Lymphocytes % (Manual) 4 % (13-43) L 01/08/19 05:17 Monocytes % (Manual) 1 % (4-9) L 01/08/19 05:17 Plt Morphology Comment Normal (NORMAL) 01/11/19 04:23 RBC Morphology Abnormal (NORMAL) 01/11/19 04:23 Hypochromasia Slight A 01/10/19 04:50 Poikilocytosis Slight A 01/09/19 11:54 Anisocytosis 2+ A 01/11/19 04:23 Microcytosis Slight A 01/10/19 04:50 Sodium 143 mmol/L (136-145) 01/11/19 04:23 Corrected Sodium TNP 01/11/19 04:23 Potassium 3.6 mmol/L (3.5-5.1) 01/11/19 04:23 Chloride 107 mmol/L (98-107) 01/11/19 04:23 Carbon Dioxide 31.4 mmol/L (21-32) 01/11/19 04:23 BUN 13 mg/dL (7-18) 01/11/19 04:23 Creatinine 0.81 mg/dL (0.70-1.30) 01/11/19 04:23 Est GFR (MDRD) Af Amer > 60 (>60) 01/11/19 04:23 Est GFR (MDRD) Non-Af > 60 (>60) 01/11/19 04:23 Glucose 98 mg/dL (65-99) 01/11/19 04:23 Calcium 8.4 mg/dL (8.5-10.1) L 01/11/19 04:23 Corrected Calcium 9.1 mg/dL (8.5-10.1) 01/11/19 04:23 Magnesium 2.0 mg/dL (1.7-2.9) 01/09/19 04:52 Iron 10 ug/dL (50-175) L 01/07/19 20:52 Transferrin 351 mg/dL (202-364) 01/07/19 20:52 Ferritin 9 ng/mL (26-388) L 01/07/19 20:52 Total Bilirubin 0.20 mg/dL (0.2-1.0) 01/11/19 04:23 AST 27 Units/L (15-37) 01/11/19 04:23 ALT 17 Units/L (12-78) 01/11/19 04:23 Alkaline Phosphatase 72 Units/L (46-116) 01/11/19 04:23 Creatine Kinase 45 Units/L (39-308) 01/10/19 09:24 CK-MB (CK-2) 1.1 ng/mL (0-4.0) 01/10/19 09:24 CK/CKMB % Calc 2.4 % (<4) 01/10/19 09:24 Troponin I 0.13 ng/mL (0-1.5) 01/10/19 09:24 Total Protein 6.0 g/dL (6.4-8.2) L 01/11/19 04:23 Albumin 3.1 g/dL (3.4-5.0) L 01/11/19 04:23 Globulin 2.9 g/dL (2.5-4.5) 01/11/19 04:23 Albumin/Globulin Ratio 1.1 Ratio (1.1-2.1) 01/11/19 04:23 Vitamin B12 350 pg/mL (193-986) 01/07/19 20:52 Folate > 20.0 ng/mL (>8.6) 01/07/19 20:52 Stool Description 200g soft dark brown 01/09/19 10:46 Stl Occult Blood (IFOB) Negative (NEGATIVE) 01/09/19 10:46 Tissue Pathology To follow 01/08/19 14:52 Blood Type O POSITIVE 01/07/19 22:15 Antibody Screen Negative 01/07/19 22:15 Crossmatch See Detail 01/07/19 22:15 - Plan (1) Anemia Status: Acute Plan: EGD PER DR HSIEH. GENTLE IV HYDRATION, s/p TRANSFUSION 5U PRBC TOTAL, ANEMIA PANEL ON ADMISSION, WITH FE DEFICIT WITH IRON REPLACEMENT CONTINUED. REPEAT OCCULT STOOL X3 ORDERED. PROTONIX 40MG IV BID. SUPPLEMENTAL O2, RESP CONSULT. CARDIAC MONITORING (2) GI bleed Status: Acute (3) Shortness of breath Status: Acute (4) Pneumonia Status: Acute Plan: RESP CONSULT, SUPPLEMENTAL O2. CT CHEST TODAY. SPUTUM CULTURE ORDERED, FREDDYO NEBS. IV ROCEPHIN (5) Hypertension Status: Acute (6) Hypochromic microcytic anemia Status: Acute (7) Abdominal pain Status: Acute Plan: CONTINUE PPI THERAPY, TREATMENT OF GASTRITIS. CT ABD PELVIS WITH CONTRAST.
[2019-01-11] MEDS: KLONOPIN TAB 0.5 MG PO SCH (20:58)
[2019-01-12 05:43] LABS: BASOPHILS # (AUTO) 0.1 X10^3/uL (0.0-0.1); BASOPHILS % (AUTO) 0.8 % (0.2-1.0); EOSINOPHILS # (AUTO) 0.3 x10^3/uL (0.0-0.2); EOSINOPHILS % (AUTO) 4.4 % (0.9-2.9); HEMATOCRIT 28.2 % (42.0-54.0); HEMOGLOBIN 9.3 g/dL (13.5-18.0); LYMPHOCYTES % (AUTO) 16.5 % (21.0-51.0); MEAN CORPUSCULAR HEMOGLOBIN 26.5 pg (27.0-34.0); MEAN CORPUSCULAR VOLUME 80.4 fL (80.0-100.0); MEAN PLATELET VOLUME 8.2 fL (7.4-11.0); MONOCYTES # (AUTO) 0.4 x10^3/uL (0.3-0.8); MONOCYTES % (AUTO) 7.1 % (0.0-13.0); NEUTROPHILS # (AUTO) 4.5 x10^3/uL (2.2-4.8); NEUTROPHILS % (AUTO) 71.2 % (42.0-75.0); PLATELET COUNT 182 X10^3/uL (150.0-450.0); RED BLOOD COUNT 3.51 X10^6/uL (4.7-6.0); RED CELL DISTRIBUTION WIDTH 23.5 % (11.6-16.5); WHITE BLOOD COUNT 6.3 X10^3/uL (3.6-10.0)
[2019-01-12 05:52] LABS: ALANINE AMINOTRANSFERASE 17 Units/L (12-78); ALBUMIN 3.1 g/dL (3.4-5.0); ALKALINE PHOSPHATASE 74 Units/L (46-116); ASPARTATE AMINO TRANSFERASE 25 Units/L (15-37); BLOOD UREA NITROGEN 9 mg/dL (7-18); CALCIUM 8.3 mg/dL (8.5-10.1); CARBON DIOXIDE 29.3 mmol/L (21-32); CHLORIDE 106 mmol/L (98-107); CREATININE 0.78 mg/dL (0.70-1.30); SODIUM 140 mmol/L (136-145); TOTAL PROTEIN 6.1 g/dL (6.4-8.2); eGFR NON BLACK RACES > 60 (>60)
[2019-01-12 05:58] LABS: ANISOCYTOSIS 2+; PLATELET MORPHOLOGY COMMENT NORMAL (NORMAL)
[2019-01-12] MEDS: DUONEB 0.5 MG/3 MG NEB SCH ×2 (06:30→12:09)
[2019-01-12] MEDS ORDERED: LASIX IVP SCH (07:00)
[2019-01-12] MEDS: PROTONIX INJ 40 MG VIAL IVP SCH (09:33)
[2019-01-12] MEDS: HEMOCYTE-PLUS PO SCH (09:33)
[2019-01-12] MEDS: NORVASC TAB 5 MG PO SCH (09:34)
[2019-01-12] MEDS: NICOTINE PATCH TD SCH (09:34)
[2019-01-12] MEDS: EFFEXOR XR 150 MG CAP PO SCH (09:37)
[2019-01-12] MEDS ORDERED: NS 100 ML IV 100 ML with VENOFER 400 MG IV NR ×2 (10:31)
[2019-01-12 13:03] VITALS: BP 178/91
== END 2019-01-12 15:10 | disposition home or self-care (01) | DRG 377 ==
LOC: ER 20:14 → MED/SURG 22:41
PROVIDERS: ADMIT Internal Medicine; ATTEND Internal Medicine
DX: K29.81 Duodenitis with bleeding; J44.9 Chronic obstructive pulmonary disease, unspecified; K57.30 Diverticulosis of large intestine without perforation or abscess without bleeding; D50.8 Other iron deficiency anemias; R06.02 Shortness of breath; I10 Essential (primary) hypertension; R07.89 Other chest pain; R59.0 Localized enlarged lymph nodes; K21.9 Gastro-esophageal reflux disease without esophagitis; K44.9 Diaphragmatic hernia without obstruction or gangrene; Y95 Nosocomial condition; K26.4 Chronic or unspecified duodenal ulcer with hemorrhage; F41.8 Other specified anxiety disorders; J18.8 Other pneumonia, unspecified organism; J90 Pleural effusion, not elsewhere classified; R94.31 Abnormal electrocardiogram [ECG] [EKG]
CPT/HCPCS: 36415; 36430; 71010; 71020; 71045; 71046; 71260; 74177; 80053; 82270; 82550; 82553; 82607; 82728; 82746; 83540; 83735; 84466; 84484; 85014; 85018; 85025; 86850; 86900; 86901; 86922; 88305; 88342; 93005; 93306; 94640; 94760; 96365; 96372; 99284; A4216; A4222; C9113; P9016; G0378; J1200; J1756; J1940; J2704; J2920; J3490; J7040; J7050; J7620

== ENCOUNTER 2021-01-03 14:01 | Observation (INO) ==
--- NOTE | 2021-01-03 14:19 | DR.DIZZY ---
HPI Time seen Time Seen by Provider: 01/03/21 14:16 PCP Primary Care Physician: samuel Complaint Chief Complaint:: pt states "i was called by mariano mayer's office and they said my hgb was 7.9. i feel weak and tired." Source History Provided: Patient Mode of Arrival Mode of Arrival: Ambulatory Timing Onset of Chief Complaint: 01/03/21 PMH PMH Past Medical History: Yes Past Medical History: Anemia and Hyperthyroidism Past Surgical History: Yes Surgical History: Ortho Surgery Past Surgical History Comment: rt shoulder surgery Family History History of Family Medical Conditions: Yes Family Medical History: Hypertension Social History Does patient currently use any type of tobacco product: Yes Have you used tobacco products in the last 12 months: Yes Type of Tobacco Use: Cigarettes How many years tobacco product used: 30 Does any household member use tobacco: Yes Alcohol Use: DAILY Do you use any recreational Drugs:: No Lives With: Spouse Lives Where: Home Infectious screening In the last 2 months have you had wt loss of >10#?: NO Have you had fever, night sweats or hemotysis?: No Have you traveled outside the country in the last 6 months?: No Isolation: Standard ROS Review of Systems Constitutional: No Symptoms Reported and See HPI Eyes: No Symptoms Reported and See HPI ENTM: No Symptoms Reported and See HPI Respiratoy: No Symptoms Reported and See HPI Cardiovascular: No Symptoms Reported and See HPI Gastrointestinal/Abdominal: No Symptoms Reported and See HPI Genitourinary: No Symptoms Reported and See HPI Neurological: No Symptoms Reported and See HPI Musculoskeletal: No Symptoms Reported and See HPI Integumentary: No Symptoms Reported and See HPI Hematologic/Lymphatic: No Symptoms Reported and See HPI Endocrine: No Symptoms Reported and See HPI Psychiatric: No Symptoms Reported and See HPI All Other Systems: Reviewed and Negative PE Vital Signs Vitals: Temperature 97.7 F Pulse Rate [Left Radial] 67 Pulse Rate 67 Respiratory Rate 17 Blood Pressure [Right Arm] 145/62 Blood Pressure [Left Arm] 178/91 Blood Pressure 145/62 O2 Sat by Pulse Oximetry 99 General Limitations: No Limitations General Appearance: Alert and In No Apparent Distress Head Head Exam: Normal Inspection Eyes Eye exam: Normal Appearance ENT ENT Exam: Normal Exam, Normal Oropharynx and Normal External Ear Exam Neck Neck Exam: Normal Inspection and Full ROM Chest Chest Inspection: Normal Inspection Respiratory Respiratory Exam: Normal Lung Sounds Bilat Cardiovascular Cardiovascular Exam: Regular Rate and Normal Rhythm Abdominal Exam Abdominal Exam: Normal Inspection, Normal Bowel Sounds and Soft Rectal Rectal Exam: Deferred Extremeties Extremities Exam: Normal Inspection and Full ROM Back Back Exam: Normal Inspection and Full ROM Neurologic Neurological Exam: Alert and Oriented X3 Psychiatric Psychiatric Exam: Normal Affect and Normal Mood Skin Skin Exam: Warm, Dry, Intact and Normal Color ROR Labs Reviewed Result Diagrams: 01/03/21 14:33 01/03/21 14:33 Laboratory: WBC 7.6 X10^3/uL (3.6-10.0) 01/03/21 14:33 RBC 3.40 X10^6/uL (4.7-6.0) L 01/03/21 14:33 Hgb 6.9 g/dL (13.5-18.0) L* 01/03/21 14:33 Hct 22.4 % (42.0-54.0) L 01/03/21 14:33 MCV 66.0 fL (80.0-100.0) L 01/03/21 14:33 MCH 20.4 pg (27.0-34.0) L 01/03/21 14:33 MCHC 30.9 g/dL (33.0-35.0) L 01/03/21 14:33 RDW 18.1 % (11.6-16.5) H 01/03/21 14:33 Plt Count 247 X10^3/uL (150.0-450.0) 01/03/21 14:33 Plt Count Comment Adequate (ADEQUATE) 01/03/21 14:33 MPV 8.4 fL (7.4-11.0) 01/03/21 14:33 Neut % (Auto) 73.6 % (42.0-75.0) 01/03/21 14:33 Lymph % (Auto) 17.1 % (21.0-51.0) L 01/03/21 14:33 [place] % (Auto) 6.5 % (0.0-13.0) 01/03/21 14:33 Eos % (Auto) 1.8 % (0.9-2.9) 01/03/21 14:33 Baso % (Auto) 1.0 % (0.2-1.0) 01/03/21 14:33 Neut # (Auto) 5.6 x10^3/uL (2.2-4.8) H 01/03/21 14:33 Lymph # (Auto) 1.3 X10^3/uL (1.3-2.9) 01/03/21 14:33 [place] # (Auto) 0.5 x10^3/uL (0.3-0.8) 01/03/21 14:33 Eos # (Auto) 0.1 x10^3/uL (0.0-0.2) 01/03/21 14:33 Baso # (Auto) 0.1 X10^3/uL (0.0-0.1) 01/03/21 14:33 Absolute Nucleated RBC 0.3 /100WBC 01/03/21 14:33 Plt Morphology Comment Normal (NORMAL) 01/03/21 14:33 RBC Morphology Abnormal (NORMAL) 01/03/21 14:33 Hypochromasia 2+ A 01/03/21 14:33 Anisocytosis Slight A 01/03/21 14:33 Microcytosis 1+ A 01/03/21 14:33 Sodium 137 mmol/L (136-145) 01/03/21 14:33 Corrected Sodium 138 mmol/L (136-145) 01/03/21 14:33 Potassium 3.9 mmol/L (3.5-5.1) 01/03/21 14:33 Chloride 102 mmol/L (98-107) 01/03/21 14:33 Carbon Dioxide 28.3 mmol/L (21-32) 01/03/21 14:33 BUN 22 mg/dL (7-18) H 01/03/21 14:33 Creatinine 0.94 mg/dL (0.70-1.30) 01/03/21 14:33 Est GFR (MDRD) Af Amer > 60 (>60) 01/03/21 14:33 Est GFR (MDRD) Non-Af > 60 (>60) 01/03/21 14:33 Glucose 121 mg/dL (65-99) H 01/03/21 14:33 Calcium 9.0 mg/dL (8.5-10.1) 01/03/21 14:33 Corrected Calcium TNP 01/03/21 14:33 Iron 11 ug/dL (50-175) L 01/03/21 14:33 Transferrin 414 mg/dL (202-364) H 01/03/21 14:33 Ferritin 7 ng/mL (26-388) L 01/03/21 14:33 Total Bilirubin 0.20 mg/dL (0.2-1.0) 01/03/21 14:33 AST 23 Units/L (15-37) 01/03/21 14:33 ALT 20 Units/L (12-78) 01/03/21 14:33 Alkaline Phosphatase 67 Units/L (46-116) 01/03/21 14:33 Total Protein 6.9 g/dL (6.4-8.2) 01/03/21 14:33 Albumin 3.6 g/dL (3.4-5.0) 01/03/21 14:33 Globulin 3.3 g/dL (2.5-4.5) 01/03/21 14:33 Albumin/Globulin Ratio 1.1 Ratio (1.1-2.1) 01/03/21 14:33 Vitamin B12 510 pg/mL (193-986) 01/03/21 14:33 Folate 16.1 ng/mL (>8.6) 01/03/21 14:33 Blood Type O POSITIVE 01/03/21 14:33 Antibody Screen Negative 01/03/21 14:33 Opioid Opioid Risk Tool Age (Vasquez box if 16-45): No History of Preadolescent Sexual Abuse: No Total: 0 Total Score Risk Category: Low Risk Copyright: Yeyo GALAN predicting aberrant behaviors
[2021-01-03 15:03] LABS: BASOPHILS # (AUTO) 0.1 X10^3/uL (0.0-0.1); EOSINOPHILS # (AUTO) 0.1 x10^3/uL (0.0-0.2); EOSINOPHILS % (AUTO) 1.8 % (0.9-2.9); HEMATOCRIT 22.4 % (42.0-54.0); LYMPHOCYTES # (AUTO) 1.3 X10^3/uL (1.3-2.9); LYMPHOCYTES % (AUTO) 17.1 % (21.0-51.0); MEAN CORPUSCULAR HEMOGLOBIN 20.4 pg (27.0-34.0); MEAN CORPUSCULAR HGB CONC 30.9 g/dL (33.0-35.0); MEAN PLATELET VOLUME 8.4 fL (7.4-11.0); MONOCYTES # (AUTO) 0.5 x10^3/uL (0.3-0.8); MONOCYTES % (AUTO) 6.5 % (0.0-13.0); NEUTROPHILS # (AUTO) 5.6 x10^3/uL (2.2-4.8); NEUTROPHILS % (AUTO) 73.6 % (42.0-75.0); PLATELET COUNT 247 X10^3/uL (150.0-450.0); RED CELL DISTRIBUTION WIDTH 18.1 % (11.6-16.5); WHITE BLOOD COUNT 7.6 X10^3/uL (3.6-10.0)
[2021-01-03 15:18] LABS: ALANINE AMINOTRANSFERASE 20 Units/L (12-78); ALBUMIN 3.6 g/dL (3.4-5.0); ALKALINE PHOSPHATASE 67 Units/L (46-116); ASPARTATE AMINO TRANSFERASE 23 Units/L (15-37); BLOOD UREA NITROGEN 22 mg/dL (7-18); CARBON DIOXIDE 28.3 mmol/L (21-32); CHLORIDE 102 mmol/L (98-107); COR NA(FOR HYPERGLY) 138 mmol/L (136-145); CREATININE 0.94 mg/dL (0.70-1.30); SODIUM 137 mmol/L (136-145); TOTAL PROTEIN 6.9 g/dL (6.4-8.2); eGFR NON BLACK RACES > 60 (>60)
[2021-01-03 15:34] LABS: HEMOGLOBIN 6.9 g/dL (13.5-18.0)
[2021-01-03 15:59] LABS: PLATELET MORPHOLOGY COMMENT NORMAL (NORMAL)
[2021-01-03 16:00] LABS: ANISOCYTOSIS SLIGHT; HYPOCHROMASIA 2+; MICROCYTOSIS 1+
[2021-01-03 18:25] VITALS: BMI 28.3
[2021-01-03] MEDS: NICOTINE PATCH TD SCH (18:58)
[2021-01-03] MEDS: NS 1,000 ML IV 1,000 ML IV SCH (18:58)
[2021-01-03] MEDS: PROTONIX INJ 40 MG VIAL 80 MG in NS 100 ML IV 80 ML IV SCH (18:58)
[2021-01-03] MEDS: COZAAR PO SCH (21:29)
[2021-01-03] MEDS: DESYREL PO SCH (21:29)
[2021-01-03] MEDS: APRESOLINE TAB 25 MG PO SCH (21:29)
[2021-01-03] MEDS: XANAX PO PRN (21:30)
[2021-01-03] MEDS: REMERON PO SCH (21:30)
[2021-01-03] MEDS: TRICOR TAB 160 MG PO SCH (21:30)
[2021-01-03] MEDS ORDERED: NS 100 ML IV 100 ML ONE (21:44)
[2021-01-04] MEDS ORDERED: NS 100 ML IV 100 ML ONE (01:07)
[2021-01-04 03:57] LABS: BILIRUBIN,URINE NEGATIVE (NEGATIVE); BLOOD/HEMOGLOBIN,URINE NEGATIVE (NEGATIVE); GLUCOSE, URINE NEGATIVE (NEGATIVE); KETONES,URINE NEGATIVE (NEGATIVE); LEUKOCYTE ESTERASE ,URINE NEGATIVE (NEGATIVE); NITRITES,URINE NEGATIVE (NEGATIVE); PROTEIN,URINE NEGATIVE (NEGATIVE); UROBILINOGEN,URINE NORMAL (NORMAL)
[2021-01-04 03:58] LABS: APPEARANCE,URINE CLEAR (CLEAR); COLOR,URINE YELLOW (YELLOW)
[2021-01-04] MEDS: PROTONIX INJ 40 MG VIAL 80 MG in NS 100 ML IV 80 ML IV SCH ×3 (04:08→14:05)
[2021-01-04 05:53] LABS: BASOPHILS # (AUTO) 0.1 X10^3/uL (0.0-0.1); BASOPHILS % (AUTO) 1.4 % (0.2-1.0); EOSINOPHILS # (AUTO) 0.2 x10^3/uL (0.0-0.2); EOSINOPHILS % (AUTO) 3.2 % (0.9-2.9); HEMATOCRIT 24.5 % (42.0-54.0); HEMOGLOBIN 7.7 g/dL (13.5-18.0); LYMPHOCYTES # (AUTO) 1.3 X10^3/uL (1.3-2.9); LYMPHOCYTES % (AUTO) 24.2 % (21.0-51.0); MEAN CORPUSCULAR HGB CONC 31.6 g/dL (33.0-35.0); MEAN CORPUSCULAR VOLUME 69.6 fL (80.0-100.0); MEAN PLATELET VOLUME 8.5 fL (7.4-11.0); MONOCYTES # (AUTO) 0.3 x10^3/uL (0.3-0.8); MONOCYTES % (AUTO) 6.3 % (0.0-13.0); NEUTROPHILS # (AUTO) 3.4 x10^3/uL (2.2-4.8); NEUTROPHILS % (AUTO) 64.9 % (42.0-75.0); PLATELET COUNT 193 X10^3/uL (150.0-450.0); RED BLOOD COUNT 3.52 X10^6/uL (4.7-6.0); RED CELL DISTRIBUTION WIDTH 21.5 % (11.6-16.5); WHITE BLOOD COUNT 5.3 X10^3/uL (3.6-10.0)
[2021-01-04 06:07] LABS: ALANINE AMINOTRANSFERASE 17 Units/L (12-78); ALKALINE PHOSPHATASE 55 Units/L (46-116); ASPARTATE AMINO TRANSFERASE 19 Units/L (15-37); BLOOD UREA NITROGEN 15 mg/dL (7-18); CALCIUM 8.5 mg/dL (8.5-10.1); CARBON DIOXIDE 27.6 mmol/L (21-32); CHLORIDE 105 mmol/L (98-107); COR CA(FOR HYPOALB) 9.3 mg/dL (8.5-10.1); CREATININE 0.76 mg/dL (0.70-1.30); SODIUM 139 mmol/L (136-145); TOTAL PROTEIN 5.9 g/dL (6.4-8.2); eGFR NON BLACK RACES > 60 (>60)
[2021-01-04 06:42] LABS: PLATELET MORPHOLOGY COMMENT NORMAL (NORMAL)
[2021-01-04 06:43] LABS: ANISOCYTOSIS 1+; HYPOCHROMASIA 2+; MICROCYTOSIS 1+
[2021-01-04 06:45] LABS: OVALOCYTES PRESENT
[2021-01-04] MEDS: NICOTINE PATCH TD SCH (09:15)
[2021-01-04] MEDS: APRESOLINE TAB 25 MG PO SCH ×2 (09:15→21:07)
[2021-01-04] MEDS: FLOMAX PO SCH (09:16)
[2021-01-04] MEDS: PROzac PO SCH ×2 (09:16→10:12)
[2021-01-04] MEDS: NORVASC TAB 10 MG PO SCH (09:16)
[2021-01-04] MEDS: COZAAR PO SCH ×2 (09:17→21:07)
--- NOTE | 2021-01-04 09:45 | DR.H&P ---
H&P - History & Physical for Day of: H&P Date: 01/03/21 - Chief Complaint Chief Complaint: WEAKNESS, FATIGUE, DARK STOOLS, LOW HEMOGLOBIN - History of Present Illness History of Present Illness: IS A 70 YEAR OLD PATIENT OF [facility]. HE PRESENTED TO THE ER WITH COMPLAINTS OF SEVERE WEAKNESS AND FATIGUE. HE HAD OUTPATIENT LABS DRAWN AT [facility] OFFICE ONE DAY PRIOR TO ARRIVAL. HE WAS CALLED BY THE OFFICE TODAY AND TOLD THAT HIS HEMOGLOBIN WAS 7.9. PATIENT DOES ADMIT TO PASSING DARK STOOLS. HIS PMH INCLUDES ANEMIA, HYPERTHYROIDISM, AND RIGHT SHOUDLER SURGERY. ON ARRIVAL TO THE ER, HIS VITALS WERE: 97.7-100-20-94%-122/74. LABS WERE OBTAINED. ABNORMAL LAB VALUES INCLUDE THE FOLLOWING: RBC 3.40, HGB 6.9, HCT 22.4, BUN 22, GLUCOSE 121, IRON 11, TRANSFERRIN 414, FERRITIN 7. URINALYSIS WAS OBTAINED AND IS UNREMARKABLE. COVID-19 NEGATIVE. PATIENT WAS ADMITTED TO THE HOSPTIAL FOR FURTHER EVALUATION AND TREATMENT OF ANEMIA AND GI BLEED. HE WAS STARTED ON NORMAL SALINE AT 50 ML/HR, A PROTONIX DRIP, PEPCID 20MG IV Q12H, AND HIS HOME MEDICATIONS OF XANAX, NORVASC, TRICOR, PROZAC, APRESOLINE, COZAAR, REMERON, FLOMAX, ULTRAM, AND DESYREL WERE RESUMED. AFTER ADMISSION, PATIENT RECEIVED TWO UNITS OF PACKED RED BLOOD CELLS. MORNING LABS REVEALED A HEMOGLOBIN OF 7.7. TODAY, WE PLAN TO TRANSFUSE TWO ADDITIONAL UNITS OF PACKED RED BLOOD CELLS. OTHERWISE, WE WILL FOLLOW UP WITH AM LABS AND CONTINUE TO MONITOR. TIME SPENT ON CLINICAL ASSESSMENT, REVIEWING LABS AND IMAGING, DECISION MAKING, AND DOCUMENTATION GREATER THAN 75 MINUTES. - Past Medical History Past Medical History: Hyperthyroidism, Anemia - Past Surgical History Surgical History: Ortho Surgery - Family History Family Medical History: Hypertension - Social History Does patient currently use any type of tobacco product: Yes Have you used tobacco products in the last 12 months: Yes Type of Tobacco Use: Cigarettes How many years tobacco product used: 55 Does any household member use tobacco: No Alcohol Use: DAILY Drug Use: None - Medications Home Medications: No Known Drug Allergies Allergy (Verified 01/07/19 20:28) CONTINUE taking the following medications alprazolam 0.25 mg PO BID PRN 01/03/21 [History] amlodipine 10 mg PO DAILY 01/03/21 [History] azithromycin [Zithromax Z-Walter] 250 mg PO ONCE 01/03/21 [History] fenofibrate 160 mg PO QHS 01/03/21 [History] fluoxetine 20 mg PO QAM 01/03/21 [History] hydralazine 25 mg PO BID 01/03/21 [History] losartan 25 mg PO BID 01/03/21 [History] meloxicam 15 mg PO DAILY 01/03/21 [History] mirtazapine 15 mg PO QHS 01/03/21 [History] pantoprazole 40 mg PO BID 01/03/21 [History] tamsulosin 0.4 mg PO DAILY 01/03/21 [History] tramadol 50 mg PO QID 01/03/21 [History] trazodone 50 mg PO QHS 01/03/21 [History] - Review of Systems Constitutional: See HPI, Weakness, Malaise Eyes: No Symptoms Reported ENT: No Symptoms Reported Respiratory: No Symptoms Reported Cardiovascular: No Symptoms Reported Gastrointestinal: Melena Genitourinary: No Symptoms Reported Musculoskeletal: No Symptoms Reported Skin: No Symptoms Reported Neurological: Weakness - Physical Exam Vital Signs: Temperature 97.2 F Pulse Rate [Left Radial] 56 Pulse Rate 67 Respiratory Rate 20 Blood Pressure [Right Arm] 131/62 Blood Pressure [Left Arm] 178/91 Blood Pressure 145/62 O2 Sat by Pulse Oximetry 95 Oriented: Normal Eyes: Normal Ear: Normal Nose: Normal Throat: Normal Respiratory: Diminished Throughout Cardiovascular: Normal : Normal Auscultation: Bowel Sounds: Normal Palpation: Normal Tenderness: Normal Skin: Normal Musculoskeletal: Normal Psychiatric: Normal Mood Description: Calm Affect: Normal Speech Pattern: Clear - Assessment/Plan (1) Anemia Qualifiers: Anemia type: iron deficiency Iron deficiency anemia type: chronic blood loss Qualified Code(s): D50.0 - Iron deficiency anemia secondary to blood loss (chronic) Status: Acute Plan: ADMIT, TRANSFUSE PRBC, NORMAL SALINE AT 50 ML/HR, A PROTONIX DRIP, PEPCID 20MG IV Q12H, AND HIS HOME MEDICATIONS OF XANAX, NORVASC, TRICOR, PROZAC, APRESOLINE, COZAAR, REMERON, FLOMAX, ULTRAM, AND DESYREL WERE RESUMED. (2) GI bleed Qualifiers: GI bleed type/associated pathology: melena Qualified Code(s): K92.1 - Melena Status: Acute - Allergies Allergies/Adverse Reactions: Allergies Allergy/AdvReac Type Severity Reaction Status Date / Time No Known Drug Allergies Allergy Verified 01/07/19 20:28
[2021-01-04] MEDS: NS 1,000 ML IV 1,000 ML IV SCH ×2 (09:56→21:16)
[2021-01-04] MEDS: ULTRAM PO SCH ×4 (09:57→21:09)
[2021-01-04] MEDS ORDERED: TYLENOL 325 MG TAB PO PRN (09:58)
[2021-01-04] MEDS ORDERED: BENADRYL INJ 50 MG VIAL IVP PRN (09:58)
[2021-01-04] MEDS ORDERED: NS 500 ML IV 500 ML IV ONE (09:58)
[2021-01-04] MEDS: PEPCID 20 MG IV PREMIX* 20 MG/50 ML BAG IV SCH ×2 (10:12→21:08)
[2021-01-04] MEDS: MOBIC TAB 15 MG PO SCH (10:12)
[2021-01-04 17:40] LABS: HEMATOCRIT 30.7 % (42.0-54.0)
[2021-01-04 17:41] LABS: HEMOGLOBIN 9.7 g/dL (13.5-18.0)
[2021-01-04] MEDS: DESYREL PO SCH (21:07)
[2021-01-04] MEDS: REMERON PO SCH (21:07)
[2021-01-04] MEDS: TRICOR TAB 160 MG PO SCH (21:08)
[2021-01-05] MEDS: PROTONIX INJ 40 MG VIAL 80 MG in NS 100 ML IV 80 ML IV SCH ×3 (00:15→20:59)
[2021-01-05 05:57] LABS: BASOPHILS # (AUTO) 0.1 X10^3/uL (0.0-0.1); BASOPHILS % (AUTO) 1.5 % (0.2-1.0); EOSINOPHILS # (AUTO) 0.1 x10^3/uL (0.0-0.2); EOSINOPHILS % (AUTO) 2.3 % (0.9-2.9); HEMATOCRIT 29.8 % (42.0-54.0); HEMOGLOBIN 9.7 g/dL (13.5-18.0); LYMPHOCYTES # (AUTO) 1.3 X10^3/uL (1.3-2.9); LYMPHOCYTES % (AUTO) 20.5 % (21.0-51.0); MEAN CORPUSCULAR HEMOGLOBIN 23.6 pg (27.0-34.0); MEAN CORPUSCULAR HGB CONC 32.7 g/dL (33.0-35.0); MEAN CORPUSCULAR VOLUME 72.1 fL (80.0-100.0); MEAN PLATELET VOLUME 8.2 fL (7.4-11.0); MONOCYTES # (AUTO) 0.5 x10^3/uL (0.3-0.8); MONOCYTES % (AUTO) 7.4 % (0.0-13.0); NEUTROPHILS # (AUTO) 4.2 x10^3/uL (2.2-4.8); NEUTROPHILS % (AUTO) 68.3 % (42.0-75.0); PLATELET COUNT 188 X10^3/uL (150.0-450.0); RED BLOOD COUNT 4.13 X10^6/uL (4.7-6.0); RED CELL DISTRIBUTION WIDTH 23.7 % (11.6-16.5); WHITE BLOOD COUNT 6.2 X10^3/uL (3.6-10.0)
[2021-01-05] MEDS: NS 1,000 ML IV 1,000 ML IV SCH ×3 (06:07→22:29)
[2021-01-05 06:11] LABS: ALANINE AMINOTRANSFERASE 14 Units/L (12-78); ALBUMIN 2.9 g/dL (3.4-5.0); ALKALINE PHOSPHATASE 56 Units/L (46-116); ASPARTATE AMINO TRANSFERASE 18 Units/L (15-37); BLOOD UREA NITROGEN 15 mg/dL (7-18); CALCIUM 8.4 mg/dL (8.5-10.1); CHLORIDE 107 mmol/L (98-107); COR CA(FOR HYPOALB) 9.3 mg/dL (8.5-10.1); CREATININE 0.79 mg/dL (0.70-1.30); SODIUM 142 mmol/L (136-145); TOTAL PROTEIN 5.9 g/dL (6.4-8.2); eGFR NON BLACK RACES > 60 (>60)
[2021-01-05 07:06] LABS: PLATELET MORPHOLOGY COMMENT NORMAL (NORMAL)
[2021-01-05 07:07] LABS: ANISOCYTOSIS 1+; HYPOCHROMASIA 1+; MICROCYTOSIS SLIGHT
[2021-01-05 07:09] LABS: OVALOCYTES PRESENT; TARGET CELLS PRESENT
[2021-01-05] MEDS: PEPCID 20 MG IV PREMIX* 20 MG/50 ML BAG IV SCH ×2 (09:15→20:53)
[2021-01-05] MEDS: NORVASC TAB 10 MG PO SCH (09:15)
[2021-01-05] MEDS: NICOTINE PATCH TD SCH (09:15)
[2021-01-05] MEDS: ULTRAM PO SCH ×4 (09:15→20:55)
[2021-01-05] MEDS: FLOMAX PO SCH (09:15)
[2021-01-05] MEDS: COZAAR PO SCH ×2 (09:15→20:54)
[2021-01-05] MEDS: APRESOLINE TAB 25 MG PO SCH ×2 (09:15→20:55)
[2021-01-05] MEDS: PROzac PO SCH ×2 (09:15)
[2021-01-05] MEDS: MOBIC TAB 15 MG PO SCH (09:15)
[2021-01-05] MEDS: REMERON PO SCH (20:54)
[2021-01-05] MEDS: DESYREL PO SCH (20:54)
[2021-01-05] MEDS: TRICOR TAB 160 MG PO SCH (20:57)
[2021-01-06] MEDS: XANAX PO PRN ×2 (00:29→21:24)
[2021-01-06 05:33] LABS: BASOPHILS # (AUTO) 0.1 X10^3/uL (0.0-0.1); BASOPHILS % (AUTO) 1.3 % (0.2-1.0); EOSINOPHILS # (AUTO) 0.1 x10^3/uL (0.0-0.2); HEMATOCRIT 28.9 % (42.0-54.0); HEMOGLOBIN 9.4 g/dL (13.5-18.0); LYMPHOCYTES # (AUTO) 1.4 X10^3/uL (1.3-2.9); MEAN CORPUSCULAR HEMOGLOBIN 23.4 pg (27.0-34.0); MEAN CORPUSCULAR HGB CONC 32.4 g/dL (33.0-35.0); MEAN CORPUSCULAR VOLUME 72.3 fL (80.0-100.0); MEAN PLATELET VOLUME 8.6 fL (7.4-11.0); MONOCYTES # (AUTO) 0.4 x10^3/uL (0.3-0.8); MONOCYTES % (AUTO) 7.2 % (0.0-13.0); NEUTROPHILS # (AUTO) 3.9 x10^3/uL (2.2-4.8); NEUTROPHILS % (AUTO) 66.5 % (42.0-75.0); PLATELET COUNT 202 X10^3/uL (150.0-450.0); RED CELL DISTRIBUTION WIDTH 23.7 % (11.6-16.5); WHITE BLOOD COUNT 5.9 X10^3/uL (3.6-10.0)
[2021-01-06 05:41] LABS: ALANINE AMINOTRANSFERASE 15 Units/L (12-78); ALBUMIN 2.9 g/dL (3.4-5.0); ALKALINE PHOSPHATASE 59 Units/L (46-116); ASPARTATE AMINO TRANSFERASE 17 Units/L (15-37); BLOOD UREA NITROGEN 13 mg/dL (7-18); CALCIUM 8.2 mg/dL (8.5-10.1); CARBON DIOXIDE 26.3 mmol/L (21-32); CHLORIDE 107 mmol/L (98-107); COR CA(FOR HYPOALB) 9.1 mg/dL (8.5-10.1); CREATININE 0.77 mg/dL (0.70-1.30); SODIUM 141 mmol/L (136-145); TOTAL PROTEIN 5.7 g/dL (6.4-8.2); eGFR NON BLACK RACES > 60 (>60)
[2021-01-06] MEDS: PROTONIX INJ 40 MG VIAL 80 MG in NS 100 ML IV 80 ML IV SCH ×2 (05:42→17:45)
[2021-01-06 06:09] LABS: PLATELET MORPHOLOGY COMMENT NORMAL (NORMAL)
[2021-01-06 06:10] LABS: ANISOCYTOSIS 2+; HYPOCHROMASIA 1+; MICROCYTOSIS SLIGHT; OVALOCYTES PRESENT; TARGET CELLS PRESENT
[2021-01-06] MEDS ORDERED: CITROMA PO ONE ×2 (08:09→17:23)
[2021-01-06] MEDS: COZAAR PO SCH ×2 (09:24→21:23)
[2021-01-06] MEDS: FLOMAX PO SCH (09:24)
[2021-01-06] MEDS: PEPCID 20 MG IV PREMIX* 20 MG/50 ML BAG IV SCH ×2 (09:24→21:23)
[2021-01-06] MEDS: APRESOLINE TAB 25 MG PO SCH ×2 (09:24→21:23)
[2021-01-06] MEDS: PROzac PO SCH ×2 (09:25→09:28)
[2021-01-06] MEDS: MOBIC TAB 15 MG PO SCH (09:25)
[2021-01-06] MEDS: NICOTINE PATCH TD SCH (09:26)
[2021-01-06] MEDS: NORVASC TAB 10 MG PO SCH (09:26)
[2021-01-06] MEDS: ULTRAM PO SCH ×4 (09:26→21:24)
[2021-01-06] MEDS: NS 1,000 ML IV 1,000 ML IV SCH ×3 (09:27→14:25)
--- NOTE | 2021-01-06 09:40 | PCM.PROG ---
Progress Note - Progress Note for Day of Date of Exam: 01/05/21 - Subjective Subjective: WAS ADMITTED FOR TREATMENT OF ANEMIA AND GI BLEED. HE HAS RECEIVED FOUR UNITS OF PACKED RED BLOOD CELLS SINCE ADMISSION. TODAY, HE IS ALERT AND ORIENTED, LYING IN BED ON MORNING ROUNDS. HE CONTINUES WITH COMPLAINTS OF WEAKNESS. HE ALSO CONTINUES WITH DARK STOOLS. ON EXAMINATION, HEART IS REGULAR IN RATE AND RHYTHM. BILATERAL LUNGS ARE CLEAR TO AUSCULTATION. ABDOMEN IS ROUND, SOFT, AND NON-TENDER WITH NORMAL BOWEL SOUNDS NOTED IN ALL QUADRANTS. HIS VITALS THIS MORNING ARE: 98.1-61-20-99%-164/79. LABS WERE OBTAINED. ABNORMAL LAB VALUES INCLUDE THE FOLLOWING: RBC 4.13, HGB 9.7, HCT 29.8, CALCIUM 8.4, TOTAL PROTEIN 5.9, ALBUMIN 2.9. STOOLS POSITIVE FOR OCCULT BLOOD. HE IS CURREN TLY RECEIVING NORMAL SALINE AT 50 ML/HR, A PROTONIX DRIP, PEPCID 20MG IV Q12H, AND HIS HOME MEDICATIONS OF XANAX, NORVASC, TRICOR, PROZAC, APRESOLINE, COZAAR, REMERON, FLOMAX, ULTRAM, AND DESYREL WERE RESUMED. WE WILL CONSULT WITH , GENERAL SURGEON FOR POSSIBLE SCOPE. OTHERWISE, WE WILL CONTINUE WITH CURRENT PLAN OF CARE TODAY. WE WILL FOLLOW UP WITH AM LABS AND CONTINUE TO MONITOR. TIME SPENT ON CLINICAL ASSESSMENT, REVIEWING LABS AND IMAGING, DECISION MAKING, AND DOCUMENTATION GREATER THAN 45 MINUTES. - Past Medical Family Social History Past Med/Fam/Surg Hx: No changes since H&P Allergies: Allergies No Known Drug Allergies Allergy (Verified 01/07/19 20:28) - Review of Systems ROS: No change since H&P - Vital Signs and I&O's Vital Signs: Temperature 98.4 F Pulse Rate [Left Radial] 60 Pulse Rate 67 Respiratory Rate 20 Blood Pressure [Right Arm] 190/83 Blood Pressure [Left Arm] 178/91 Blood Pressure 145/62 O2 Sat by Pulse Oximetry 94 Intake and Output: Intake & Output 01/03/21 01/04/21 01/05/21 01/06/21 11:59 11:59 11:59 11:59 Intake Total 1564 / 1564 3516 / 3516 1676 / 1676 Output Total 500 / 500 Balance 1064 / 1064 3516 / 3516 1676 / 1676 - Physical Exam Oriented: Normal Eyes: Normal Ear: Normal Nose: Normal Throat: Normal Respiratory: Generalized, Diminished Cardiovascular: Normal : Normal Auscultation: Bowel Sounds: Normal Tenderness: Normal Skin: Normal Musculoskeletal: Normal Psychiatric: Normal Mood Description: Calm Affect: Normal Speech Pattern: Clear, Appropriate - Laboratory and Diagnostics Result Diagrams: 01/06/21 04:42 01/06/21 04:42 Labs: Laboratory WBC 5.9 X10^3/uL (3.6-10.0) 01/06/21 04:42 RBC 4.00 X10^6/uL (4.7-6.0) L 01/06/21 04:42 Hgb 9.4 g/dL (13.5-18.0) L 01/06/21 04:42 Hct 28.9 % (42.0-54.0) L 01/06/21 04:42 MCV 72.3 fL (80.0-100.0) L 01/06/21 04:42 MCH 23.4 pg (27.0-34.0) L 01/06/21 04:42 MCHC 32.4 g/dL (33.0-35.0) L 01/06/21 04:42 RDW 23.7 % (11.6-16.5) H 01/06/21 04:42 Plt Count 202 X10^3/uL (150.0-450.0) 01/06/21 04:42 Plt Count Comment Adequate (ADEQUATE) 01/06/21 04:42 MPV 8.6 fL (7.4-11.0) 01/06/21 04:42 Neut % (Auto) 66.5 % (42.0-75.0) 01/06/21 04:42 Lymph % (Auto) 23.0 % (21.0-51.0) 01/06/21 04:42 [place] % (Auto) 7.2 % (0.0-13.0) 01/06/21 04:42 Eos % (Auto) 2.0 % (0.9-2.9) 01/06/21 04:42 Baso % (Auto) 1.3 % (0.2-1.0) H 01/06/21 04:42 Neut # (Auto) 3.9 x10^3/uL (2.2-4.8) 01/06/21 04:42 Lymph # (Auto) 1.4 X10^3/uL (1.3-2.9) 01/06/21 04:42 [place] # (Auto) 0.4 x10^3/uL (0.3-0.8) 01/06/21 04:42 Eos # (Auto) 0.1 x10^3/uL (0.0-0.2) 01/06/21 04:42 Baso # (Auto) 0.1 X10^3/uL (0.0-0.1) 01/06/21 04:42 Absolute Nucleated RBC 0.1 /100WBC 01/06/21 04:42 Plt Morphology Comment Normal (NORMAL) 01/06/21 04:42 RBC Morphology Abnormal (NORMAL) 01/06/21 04:42 Dimorphic RBCs Present 01/06/21 04:42 Hypochromasia 1+ A 01/06/21 04:42 Anisocytosis 2+ A 01/06/21 04:42 Microcytosis Slight A 01/06/21 04:42 Target Cells Present 01/06/21 04:42 Ovalocytes Present 01/06/21 04:42 Sodium 141 mmol/L (136-145) 01/06/21 04:42 Corrected Sodium TNP 01/06/21 04:42 Potassium 3.9 mmol/L (3.5-5.1) 01/06/21 04:42 Chloride 107 mmol/L (98-107) 01/06/21 04:42 Carbon Dioxide 26.3 mmol/L (21-32) 01/06/21 04:42 BUN 13 mg/dL (7-18) 01/06/21 04:42 Creatinine 0.77 mg/dL (0.70-1.30) 01/06/21 04:42 Est GFR (MDRD) Af Amer > 60 (>60) 01/06/21 04:42 Est GFR (MDRD) Non-Af > 60 (>60) 01/06/21 04:42 Glucose 90 mg/dL (65-99) 01/06/21 04:42 Calcium 8.2 mg/dL (8.5-10.1) L 01/06/21 04:42 Corrected Calcium 9.1 mg/dL (8.5-10.1) 01/06/21 04:42 Iron 11 ug/dL (50-175) L 01/03/21 14:33 Transferrin 414 mg/dL (202-364) H 01/03/21 14:33 Ferritin 7 ng/mL (26-388) L 01/03/21 14:33 Total Bilirubin 0.20 mg/dL (0.2-1.0) 01/06/21 04:42 AST 17 Units/L (15-37) 01/06/21 04:42 ALT 15 Units/L (12-78) 01/06/21 04:42 Alkaline Phosphatase 59 Units/L (46-116) 01/06/21 04:42 Total Protein 5.7 g/dL (6.4-8.2) L 01/06/21 04:42 Albumin 2.9 g/dL (3.4-5.0) L 01/06/21 04:42 Globulin 2.8 g/dL (2.5-4.5) 01/06/21 04:42 Albumin/Globulin Ratio 1.0 Ratio (1.1-2.1) L 01/06/21 04:42 Vitamin B12 510 pg/mL (193-986) 01/03/21 14:33 Folate 16.1 ng/mL (>8.6) 01/03/21 14:33 Specimen Type Clean catch urine 01/04/21 03:30 Urine Color Yellow (YELLOW) 01/04/21 03:30 Urine Appearance Clear (CLEAR) 01/04/21 03:30 Urine pH 6.0 (5.0 - 8.0) 01/04/21 03:30 Ur Specific [place] 1.025 (1.000-1.030) 01/04/21 03:30 Urine Protein Negative (NEGATIVE) 01/04/21 03:30 Urine Glucose (UA) Negative (NEGATIVE) 01/04/21 03:30 Urine Ketones Negative (NEGATIVE) 01/04/21 03:30 Urine Occult Blood Negative (NEGATIVE) 01/04/21 03:30 Urine Nitrite Negative (NEGATIVE) 01/04/21 03:30 Urine Bilirubin Negative (NEGATIVE) 01/04/21 03:30 Urine Urobilinogen Normal (NORMAL) 01/04/21 03:30 Ur Leukocyte Esterase Negative (NEGATIVE) 01/04/21 03:30 Stool Description Fob tube 01/05/21 10:05 Stl Occult Blood (IFOB) Positive (NEGATIVE) A 01/05/21 10:05 SARS-CoV-2 (PCR) Negative (NEGATIVE) 01/03/21 16:24 Blood Type O POSITIVE 01/03/21 14:33 Antibody Screen Negative 01/03/21 14:33 Crossmatch See Detail 01/03/21 14:33 - Plan (1) Anemia Status: Acute Qualifiers: Anemia type: iron deficiency Iron deficiency anemia type: chronic blood loss Qualified Code(s): D50.0 - Iron deficiency anemia secondary to blood loss (chronic) Plan: MONITOR HGB, CONSULT FOR SCOPE, NORMAL SALINE AT 50 ML/HR, A PROTONIX D RIP, PEPCID 20MG IV Q12H, AND HIS HOME MEDICATIONS OF XANAX, NORVASC, TRICOR, PROZAC, APRESOLINE, COZAAR, REMERON, FLOMAX, ULTRAM, AND DESYREL WERE RESUMED. (2) GI bleed Status: Acute Qualifiers: GI bleed type/associated pathology: melena Qualified Code(s): K92.1 - Melena
[2021-01-06] MEDS ORDERED: CITROMA ONE (11:50)
--- NOTE | 2021-01-06 19:07 | DR.CONSULT ---
CONSULT Consultation for Day of: Date: 01/06/21 Chief Complaint Chief Complaint: Weak and tired Allergies Allergies Allergy/AdvReac Type Severity Reaction Status Date / Time No Known Drug Allergies Allergy Verified 01/07/19 20:28 History of Present Illness History of Present Illness: 70 year old male who had noted that he had been feeling weak and tired and saw his primary care provider and hemoglobin was less than eight grams. Patient was admitted to the hospital and has received four units of packed red blood cells. He has a history of gastritis diagnosed by EGD in 2019 and colonoscopy in 2019 showed diverticulosis of the colon . He has been stable and I have been asked to see him in consultation. Past Medical History Past Medical History: Anemia and Hyperthyroidism Additional Medical History: Hx of gastritis with anemia, Hx of diverticulosis of the colon, voiding difficulties. Past Surgical History Surgical History: Ortho Surgery (right rotator cuff repair) Family History Family Medical History: Hypertension Social History Does patient currently use any type of tobacco product: Yes Have you used tobacco products in the last 12 months: Yes Type of Tobacco Use: Cigarettes How many years tobacco product used: 55 Does any household member use tobacco: No Alcohol Use: DAILY Drug Use: None Medications Home Medications: No Known Drug Allergies Allergy (Verified 01/07/19 20:28) CONTINUE taking the following medications alprazolam 0.25 mg PO BID PRN 01/03/21 [History] amlodipine 10 mg PO DAILY 01/03/21 [History] azithromycin [Zithromax Z-Walter] 250 mg PO ONCE 01/03/21 [History] fenofibrate 160 mg PO QHS 01/03/21 [History] fluoxetine 20 mg PO QAM 01/03/21 [History] hydralazine 25 mg PO BID 01/03/21 [History] losartan 25 mg PO BID 01/03/21 [History] meloxicam 15 mg PO DAILY 01/03/21 [History] mirtazapine 15 mg PO QHS 01/03/21 [History] pantoprazole 40 mg PO BID 01/03/21 [History] tamsulosin 0.4 mg PO DAILY 01/03/21 [History] tramadol 50 mg PO QID 01/03/21 [History] trazodone 50 mg PO QHS 01/03/21 [History] Review of Systems Constitutional: No Symptoms Reported Eyes: No Symptoms Reported ENT: No Symptoms Reported Respiratory: No Symptoms Reported Cardiovascular: No Symptoms Reported Gastrointestinal: No Symptoms Reported Genitourinary: No Symptoms Reported (other than usual) Musculoskeletal: No Symptoms Reported Skin: No Symptoms Reported Neurological: No Symptoms Reported Physical Exam Vital Signs: Temperature 97.9 F Pulse Rate [Left Radial] 63 Pulse Rate 67 Respiratory Rate 18 Blood Pressure [Right Arm] 167/70 Blood Pressure [Left Arm] 178/91 Blood Pressure 145/62 O2 Sat by Pulse Oximetry 95 Oriented: Normal, Time, Person and Place Eyes: Normal Ear: Normal Nose: Normal Throat: Normal Respiratory: Clear Throughout Cardiovascular: Normal : Normal Auscultation: Bowel Sounds: Normal Palpation: Normal Tenderness: Normal Skin: Normal Musculoskeletal: Normal Psychiatric: Normal Mood Description: Calm Affect: Normal Speech Pattern: Clear Plan (1) Anemia: Status: Acute Qualifiers: Anemia type: iron deficiency Iron deficiency anemia type: chronic blood loss Qualified Code(s): D50.0 - Iron deficiency anemia secondary to blood loss (chronic) Plan: Plan clear liquid diet with bowel prep and plan upper and lower endoscopy tomorrow. (2) GI bleed: Status: Acute Qualifiers: GI bleed type/associated pathology: melena Qualified Code(s): K92.1 - Melena
[2021-01-06] MEDS: TRICOR TAB 160 MG PO SCH (21:23)
[2021-01-06] MEDS: DESYREL PO SCH (21:23)
[2021-01-06] MEDS: REMERON PO SCH (21:23)
[2021-01-07] MEDS: PROTONIX INJ 40 MG VIAL 80 MG in NS 100 ML IV 80 ML IV SCH (03:45)
[2021-01-07 05:48] LABS: BASOPHILS # (AUTO) 0.1 X10^3/uL (0.0-0.1); EOSINOPHILS # (AUTO) 0.2 x10^3/uL (0.0-0.2); EOSINOPHILS % (AUTO) 2.2 % (0.9-2.9); HEMATOCRIT 30.5 % (42.0-54.0); HEMOGLOBIN 9.8 g/dL (13.5-18.0); LYMPHOCYTES # (AUTO) 1.5 X10^3/uL (1.3-2.9); LYMPHOCYTES % (AUTO) 19.6 % (21.0-51.0); MEAN CORPUSCULAR HEMOGLOBIN 23.2 pg (27.0-34.0); MEAN CORPUSCULAR HGB CONC 32.1 g/dL (33.0-35.0); MEAN CORPUSCULAR VOLUME 72.2 fL (80.0-100.0); MEAN PLATELET VOLUME 8.1 fL (7.4-11.0); MONOCYTES # (AUTO) 0.4 x10^3/uL (0.3-0.8); MONOCYTES % (AUTO) 6.1 % (0.0-13.0); NEUTROPHILS # (AUTO) 5.2 x10^3/uL (2.2-4.8); NEUTROPHILS % (AUTO) 71.1 % (42.0-75.0); PLATELET COUNT 200 X10^3/uL (150.0-450.0); RED BLOOD COUNT 4.22 X10^6/uL (4.7-6.0); RED CELL DISTRIBUTION WIDTH 23.9 % (11.6-16.5); WHITE BLOOD COUNT 7.4 X10^3/uL (3.6-10.0)
[2021-01-07 06:01] LABS: ALANINE AMINOTRANSFERASE 14 Units/L (12-78); ALKALINE PHOSPHATASE 54 Units/L (46-116); ASPARTATE AMINO TRANSFERASE 18 Units/L (15-37); BLOOD UREA NITROGEN 10 mg/dL (7-18); CALCIUM 8.4 mg/dL (8.5-10.1); CARBON DIOXIDE 26.2 mmol/L (21-32); CHLORIDE 107 mmol/L (98-107); COR CA(FOR HYPOALB) 9.2 mg/dL (8.5-10.1); CREATININE 0.71 mg/dL (0.70-1.30); SODIUM 140 mmol/L (136-145); TOTAL PROTEIN 5.9 g/dL (6.4-8.2); eGFR NON BLACK RACES > 60 (>60)
[2021-01-07 06:22] LABS: PLATELET MORPHOLOGY COMMENT NORMAL (NORMAL)
[2021-01-07 06:23] LABS: ANISOCYTOSIS 2+; HYPOCHROMASIA 1+; MICROCYTOSIS SLIGHT
[2021-01-07 06:24] LABS: OVALOCYTES PRESENT; TARGET CELLS PRESENT
[2021-01-07] MEDS: NS 1,000 ML IV 1,000 ML IV SCH ×2 (07:25)
[2021-01-07] MEDS ORDERED: DIPRIVAN VIAL 20 ML ONE ×2 (07:27→07:52)
[2021-01-07] MEDS ORDERED: XYLOCAINE 2 % (PLAIN) ONE (07:40)
[2021-01-07] MEDS ORDERED: KETALAR ONE (07:40)
--- NOTE | 2021-01-07 08:13 | OR.IMMED ---
IMMEDIATE POST-OP NOTE Immediate Post-Op Note Pre-Op Diagnosis: admitted with severe anemia Post-Op Diagnosis: no active bleeding, normal colon, normal stomach, mild esophageal varices , no active bleeding Procedure: EGD, colonoscopy Surgeon/Skin Care Specialist: Misael Findings: as above Specimens Removed: none Estimated Blood Loss: 0 Drains: NONE Complications: none Progress Notes: return to floor, regular diet, CT of abdomen and pelvis, hepatitis b abd c antibodies drawn Final Diagnosis: Anemia , no active bleeding , possible small esophageal varices
[2021-01-07] MEDS ORDERED: NS 100 ML IV 100 ML ONE (10:01)
--- NOTE | 2021-01-07 11:02 | DR.OPNOTE ---
OP NOTE Pre-Op Diagnosis: anemia , probable GI bleed Post-Op Diagnosis: No obvious bleeding lesions stomach or colon, non-bleeding mild esophagea Procedure Date Date Of Procedure: 01/07/21 Procedure: Patient was taken to the endoscopy Suite, placed in the left lateral position and given IV sedation. Time out for the procedure obtained. Bite block placed and flexible endoscope placed in the mouth and into the esophagus. There was no active bleeding in the esophagus or the stomach. The duodenum and pylorus were normal. J maneuver carry out showing no obvious bleeding. On withdrawing the scope there were mild esophageal varices of the distal esophagus with no bleeding or any Evidence of recent bleeding. Endoscope removed. The patient turned around and the flexible colonoscope introduced into the anus and taken all the way to the cecum without difficulty. On withdrawing the colonoscope there were no abnormalities .There was no active bleeding. Anesthesia Comment: MAC Findings: No obvious bleeding lesions of the stomach or the colon. Evidence of mild esophageal varices with no obvious active bleeding for old bleeding site. Specimen/Pathology: none Type of Fluids Used:: Lactated Ringers EBL: 0 cc Drains/Tubes Placed: None Complications:: none Disposition/Condition: Pt. tolerated procedure without difficulty. Taken to PACU in stable condition.
--- NOTE | 2021-01-07 11:10 | CT ---
HISTORYRECENT ANEMIA, S/P EGDSTUDYCT abdomen pelvis with IV contrastCOMPARISONCT 01/11/2019TECHNIQUEMultiple axial images of the abdomen and pelvis were obtained from the lung bases to the pubic symphysis after the administration of IV contrast. 100 cc Omnipaque 350 IV contrast. Oral contrast is administered. Dose reduction techniques including Automated Exposure Control (AEC) and adjustment of mA and kV were utilized.FINDINGSThe visualized portions of the lung bases suggest mild dependent atelectasis. There is a 3.5 mm left lower lobe lung nodule that is stable. It is probably benign granuloma given long-term stability. There is resolution of pleural effusions seen previously.Liver is normal in size. Benign-appearing hepatic cysts are similar to prior study. Borderline splenomegaly is unchanged. Calcified granuloma is seen in the spleen.Gallbladder is not well distended and the wall is hazy in appearance. Cholecystitis cannot be excluded. No suggestion of gallstone is seen. There is a very tiny amount of fluid adjacent to the liver near the gallbladder fossa that is new since prior study. No biliary ductal dilation.No pancreatic abnormality is seen.The adrenal glands appear normal.Three small stable cysts are seen in the left kidney. There is collapse of the cyst in the mid left kidney which now has a slightly vague indistinct appearance. There is a 2.5 mm nonobstructing right renal stone in the lower pole. There is a 1.5 mm stone in the superior pole of the left kidney. No hydronephrosis. Ureters and bladder appear normal.Mild increased colonic air is seen. The region of the cecum and ascending colon is not distended. It has questionable wall thickening as can be seen with colitis appearance could be due to lack of distension. There may be very mild wall thickening in the terminal ileum. Review of prior CT suggests there may be slight wall thickening in the terminal ileum at that time. But no colonic wall thickening with seen. Normal appendix is seen.Calcifications are seen within normal sized prostate gland.Abdominal aorta is normal in size.No suspicious lymphadenopathy.No free intraperitoneal air or fluid is seen.Probable mild bilateral sacroiliitis. Prominent lumbar spondylosis is seen.IMPRESSIONPossible mild right-sided colitis and ileitis in the terminal ileum. Ileitis changes may be chronic, but all of these changes could possibly be artifactual from underdistention. Consider possible Crohn's disease as well as colitis and back wash ileitis.Small nonobstructing bilateral renal stones.Probable benign hepatic and renal cysts are very similar to prior study. One of the right renal cysts appears to have collapsed since prior study. Suggest follow-up contrast enhanced CT in 1 years time to assure no further changes in this area of the left kidney.Gallbladder wall is slightly indistinct which may be due to lack of distention. There is a tiny amount of right upper quadrant fluid, though. Consider possible cholecystitis. Recommend further evaluation with right upper quadrant ultrasound.Electronically signed by: Kai Klein (Jan 07, 2021 11:09:17)
[2021-01-07 12:35] VITALS: BP 177/81
[2021-01-07] MEDS: FLOMAX PO SCH (12:36)
[2021-01-07] MEDS: COZAAR PO SCH (12:36)
[2021-01-07] MEDS: APRESOLINE TAB 25 MG PO SCH (12:36)
[2021-01-07] MEDS: MOBIC TAB 15 MG PO SCH (12:36)
[2021-01-07] MEDS: PEPCID 20 MG IV PREMIX* 20 MG/50 ML BAG IV SCH (12:37)
[2021-01-07] MEDS: ULTRAM PO SCH (12:37)
[2021-01-07] MEDS: NORVASC TAB 10 MG PO SCH (12:37)
[2021-01-07] MEDS: NICOTINE PATCH TD SCH (12:37)
[2021-01-07] MEDS: PROzac PO SCH ×2 (12:38→12:41)
== END 2021-01-07 16:20 | disposition home or self-care (01) ==
LOC: ER 14:01 → MED/SURG 14:01
PROVIDERS: ADMIT Internal Medicine; ATTEND Internal Medicine
DX: D50.0 Iron deficiency anemia secondary to blood loss (chronic); R53.83 Other fatigue; R53.1 Weakness; Z20.822 Contact with and (suspected) exposure to COVID-19; K92.1 Melena

== ENCOUNTER 2021-08-21 20:28 | Observation (INO) ==
[2021-08-21 21:05] LABS: EOSINOPHILS # (AUTO) 0.1 x10^3/uL (0.0-0.2); HEMOGLOBIN 7.5 g/dL (13.5-18.0); LYMPHOCYTES # (AUTO) 1.5 X10^3/uL (1.3-2.9); MEAN PLATELET VOLUME 7.9 fL (7.4-11.0); NEUTROPHILS # (AUTO) 3.9 x10^3/uL (2.2-4.8)
--- NOTE | 2021-08-21 21:06 | DR.GIBLEED ---
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 Complaints Chief Complaint:: GI bleed. Had surgery last Wednesday [place] by Dr. Foster. Source History Provided: Patient and Significant Other Mode of Arrival Mode of Arrival: Ambulatory Timing Onset of Chief Complaint: 08/21/21 PMH PMH Past Medical History: Yes Past Medical History: Anemia and Hyperthyroidism Past Surgical History: Yes Surgical History: Ortho Surgery Past Surgical History Comment: colon Family History History of Family Medical Conditions: Yes Family Medical History: Hypertension Social History Alcohol Use: Occasionally Do you use any recreational Drugs:: No Infectious screening Have you traveled outside the country in the last 6 months?: No Isolation: Standard ROS Review of Systems Constitutional: See HPI, Malaise, Weakness and Fatigue Eyes: No Symptoms Reported ENTM: No Symptoms Reported Respiratoy: No Symptoms Reported Cardiovascular: No Symptoms Reported Gastrointestinal/Abdominal: See HPI Neurological: No Symptoms Reported Musculoskeletal: No Symptoms Reported Integumentary: No Symptoms Reported Hematologic/Lymphatic: No Symptoms Reported Endocrine: No Symptoms Reported Psychiatric: No Symptoms Reported PE Vital Signs Vitals: Temperature 98.0 F Pulse Rate 76 Respiratory Rate 22 Blood Pressure [Right Arm] 177/81 Blood Pressure 138/67 O2 Sat by Pulse Oximetry 97 General Limitations: No Limitations General Appearance: Alert, In No Apparent Distress and Lethargic (barely opens eyes, speech low) Head Head Exam: Normal Inspection Eyes Eye exam: Normal Appearance ENT ENT Exam: Normal Exam Neck Neck Exam: Normal Inspection Chest Chest Inspection: Normal Inspection Respiratory Respiratory Exam: Normal Lung Sounds Bilat Respiratory Exam: Bilateral: Clear to Auscultation Cardiovascular Cardiovascular Exam: Regular Rate, Normal Rhythm and Systolic Murmur (3/6 jayme) Abdominal Exam Abdominal Exam: Normal Inspection, Normal Bowel Sounds and Soft Rectal Rectal Exam: Deferred Extremities Extremities Exam: Normal Inspection Back Back Exam: Normal Inspection Neurologic Neurological Exam: Alert and Oriented X3 Psychiatric Psychiatric Exam: Normal Affect and Normal Mood Skin Skin Exam: Warm, Dry, Intact and Pallor DIFFERENTIAL DIAGNOSIS Differential Diagnosis Differential Diagnosis: Angiodysplasia and Gastritis Differential Diagnosis Comment: bleeding polyp COURSE Reevaluation 1st: Unchanged Consultation Call Returned: 22:16 (Dr Douglas accepts admission.) ROR Labs Reviewed Laboratory Results Reviewed?: Yes Result Diagrams: 08/21/21 20:45 08/21/21 20:45 Laboratory: WBC 6.0 X10^3/uL (3.6-10.0) 08/21/21 20:45 RBC 2.67 X10^6/uL (4.7-6.0) L 08/21/21 20:45 Hgb 7.5 g/dL (13.5-18.0) L 08/21/21 20:45 Hct 21.4 % (42.0-54.0) L 08/21/21 20:45 MCV 80.3 fL (80.0-100.0) 08/21/21 20:45 MCH 28.3 pg (27.0-34.0) 08/21/21 20:45 MCHC 35.2 g/dL (33.0-35.0) H 08/21/21 20:45 RDW 17.4 % (11.6-16.5) H 08/21/21 20:45 Plt Count 215 X10^3/uL (150.0-450.0) 08/21/21 20:45 MPV 7.9 fL (7.4-11.0) 08/21/21 20:45 Neut % (Auto) 65.4 % (42.0-75.0) 08/21/21 20:45 Lymph % (Auto) 25.3 % (21.0-51.0) 08/21/21 20:45 [place] % (Auto) 6.4 % (0.0-13.0) 08/21/21 20:45 Eos % (Auto) 2.2 % (0.9-2.9) 08/21/21 20:45 Baso % (Auto) 0.7 % (0.2-1.0) 08/21/21 20:45 Neut # (Auto) 3.9 x10^3/uL (2.2-4.8) 08/21/21 20:45 Lymph # (Auto) 1.5 X10^3/uL (1.3-2.9) 08/21/21 20:45 [place] # (Auto) 0.4 x10^3/uL (0.3-0.8) 08/21/21 20:45 Eos # (Auto) 0.1 x10^3/uL (0.0-0.2) 08/21/21 20:45 Baso # (Auto) 0.0 X10^3/uL (0.0-0.1) 08/21/21 20:45 Absolute Nucleated RBC 0.2 /100WBC 08/21/21 20:45 Sodium 139 mmol/L (136-145) 08/21/21 20:45 Corrected Sodium 140 mmol/L (136-145) 08/21/21 20:45 Potassium 3.0 mmol/L (3.5-5.1) L 08/21/21 20:45 Chloride 105 mmol/L (98-107) 08/21/21 20:45 Carbon Dioxide 21.1 mmol/L (21-32) 08/21/21 20:45 BUN 14 mg/dL (7-18) 08/21/21 20:45 Creatinine 1.03 mg/dL (0.70-1.30) 08/21/21 20:45 Est GFR (MDRD) Af Amer > 60 (>60) 08/21/21 20:45 Est GFR (MDRD) Non-Af > 60 (>60) 08/21/21 20:45 Glucose 150 mg/dL (65-99) H 08/21/21 20:45 Calcium 8.3 mg/dL (8.5-10.1) L 08/21/21 20:45 Corrected Calcium 8.9 mg/dL (8.5-10.1) 08/21/21 20:45 Total Bilirubin 0.20 mg/dL (0.2-1.0) 08/21/21 20:45 AST 22 Units/L (15-37) 08/21/21 20:45 ALT 22 Units/L (12-78) 08/21/21 20:45 Alkaline Phosphatase 71 Units/L (46-116) 08/21/21 20:45 Total Protein 6.3 g/dL (6.4-8.2) L 08/21/21 20:45 Albumin 3.3 g/dL (3.4-5.0) L 08/21/21 20:45 Globulin 3.0 g/dL (2.5-4.5) 08/21/21 20:45 Albumin/Globulin Ratio 1.1 Ratio (1.1-2.1) 08/21/21 20:45 SARS-CoV-2 (PCR) Negative (NEGATIVE) 08/21/21 21:56 Influenza Type A (PCR) Negative (NEGATIVE) 08/21/21 21:56 Influenza Type B (PCR) Negative (NEGATIVE) 08/21/21 21:56 RSV (PCR) Negative (NEGATIVE) 08/21/21 21:56 Blood Type O POSITIVE 08/21/21 21:56 Antibody Screen Negative 08/21/21 21:56 Crossmatch See Detail 08/21/21 21:56 Opioid Opioid Risk Tool Age (Vasquez box if 16-45): No History of Preadolescent Sexual Abuse: No Total: 0 Total Score Risk Category: Low Risk Copyright: Yeyo GALAN predicting aberrant behaviors Discharge Plan Diagnosis Discharge Problem: GI bleeding, Symptomatic anemia, Acute hypokalemia Discharge Plan Patient Disposition: ADMITTED INPATIENT Condition: Stable
[2021-08-21 21:09] LABS: BASOPHILS % (AUTO) 0.7 % (0.2-1.0); EOSINOPHILS % (AUTO) 2.2 % (0.9-2.9); HEMATOCRIT 21.4 % (42.0-54.0); LYMPHOCYTES % (AUTO) 25.3 % (21.0-51.0); MEAN CORPUSCULAR HEMOGLOBIN 28.3 pg (27.0-34.0); MEAN CORPUSCULAR HGB CONC 35.2 g/dL (33.0-35.0); MEAN CORPUSCULAR VOLUME 80.3 fL (80.0-100.0); MONOCYTES # (AUTO) 0.4 x10^3/uL (0.3-0.8); MONOCYTES % (AUTO) 6.4 % (0.0-13.0); NEUTROPHILS % (AUTO) 65.4 % (42.0-75.0); RED BLOOD COUNT 2.67 X10^6/uL (4.7-6.0); RED CELL DISTRIBUTION WIDTH 17.4 % (11.6-16.5)
[2021-08-21 21:17] LABS: ALANINE AMINOTRANSFERASE 22 Units/L (12-78); ALBUMIN 3.3 g/dL (3.4-5.0); ALKALINE PHOSPHATASE 71 Units/L (46-116); ASPARTATE AMINO TRANSFERASE 22 Units/L (15-37); BLOOD UREA NITROGEN 14 mg/dL (7-18); CALCIUM 8.3 mg/dL (8.5-10.1); CARBON DIOXIDE 21.1 mmol/L (21-32); CHLORIDE 105 mmol/L (98-107); COR CA(FOR HYPOALB) 8.9 mg/dL (8.5-10.1); COR NA(FOR HYPERGLY) 140 mmol/L (136-145); CREATININE 1.03 mg/dL (0.70-1.30); SODIUM 139 mmol/L (136-145); TOTAL PROTEIN 6.3 g/dL (6.4-8.2); eGFR NON BLACK RACES > 60 (>60)
[2021-08-21] MEDS ORDERED: NS 1,000 ML IV 1,000 ML ONE (22:53)
[2021-08-21] MEDS: NS 1,000 ML IV 1,000 ML IV SCH (23:19)
[2021-08-21] MEDS ORDERED: K-DUR TAB 20 MEQ PO ONE ×2 (23:22→23:23)
[2021-08-22 00:28] VITALS: BMI 27.6
[2021-08-22] MEDS ORDERED: NS 100 ML IV 100 ML ONE (00:47)
[2021-08-22 04:28] LABS: BASOPHILS % (AUTO) 0.7 % (0.2-1.0); EOSINOPHILS # (AUTO) 0.2 x10^3/uL (0.0-0.2); EOSINOPHILS % (AUTO) 3.3 % (0.9-2.9); HEMATOCRIT 21.6 % (42.0-54.0); HEMOGLOBIN 7.2 g/dL (13.5-18.0); LYMPHOCYTES # (AUTO) 1.4 X10^3/uL (1.3-2.9); LYMPHOCYTES % (AUTO) 26.7 % (21.0-51.0); MEAN CORPUSCULAR HEMOGLOBIN 26.4 pg (27.0-34.0); MEAN CORPUSCULAR HGB CONC 33.4 g/dL (33.0-35.0); MEAN PLATELET VOLUME 7.7 fL (7.4-11.0); MONOCYTES # (AUTO) 0.5 x10^3/uL (0.3-0.8); MONOCYTES % (AUTO) 8.9 % (0.0-13.0); NEUTROPHILS # (AUTO) 3.1 x10^3/uL (2.2-4.8); NEUTROPHILS % (AUTO) 60.4 % (42.0-75.0); RED BLOOD COUNT 2.73 X10^6/uL (4.7-6.0); RED CELL DISTRIBUTION WIDTH 16.9 % (11.6-16.5); WHITE BLOOD COUNT 5.1 X10^3/uL (3.6-10.0)
[2021-08-22 04:42] LABS: ALANINE AMINOTRANSFERASE 17 Units/L (12-78); ALKALINE PHOSPHATASE 55 Units/L (46-116); ASPARTATE AMINO TRANSFERASE 20 Units/L (15-37); BLOOD UREA NITROGEN 14 mg/dL (7-18); CALCIUM 7.8 mg/dL (8.5-10.1); CARBON DIOXIDE 27.8 mmol/L (21-32); CHLORIDE 108 mmol/L (98-107); COR CA(FOR HYPOALB) 8.6 mg/dL (8.5-10.1); CREATININE 0.94 mg/dL (0.70-1.30); SODIUM 141 mmol/L (136-145); TOTAL PROTEIN 5.4 g/dL (6.4-8.2); eGFR NON BLACK RACES > 60 (>60)
--- NOTE | 2021-08-22 10:04 | DR.H&P ---
H&P History & Physical for Day of: H&P Date: 08/21/21 Chief Complaint Chief Complaint: Weakness, bright red blood per rectum. Allergies Allergies Allergy/AdvReac Type Severity Reaction Status Date / Time No Known Drug Allergies Allergy Verified 01/07/19 20:28 History of Present Illness History of Present Illness: This 71 year old male has been evaluated multiple t imes in the last year, once by me, for possible GI bleeding. He had normal upper and lower endoscopy by me several months ago. He has continued to have blood per rectum and underwent evaluation with upper and lower endoscopy by a center line cutter operator , Dr Foster , in [place]. The patient said that something was cauterized. 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 He began to have bright red blood per rectum and was evaluated in the emergency room in [facility] with a hemoglobin 7. 5 G. He is otherwise without complaint. Past history of hypertension and arthritis . Past Medical History Past Medical History: Anemia and Hyperthyroidism Additional Medical History: Hx of gastritis with anemia, Hx of diverticulosis of the colon, voiding difficulties. Past Surgical History Surgical History: Ortho Surgery Family History Family Medical History: Cancer and Hypertension Social History Does patient currently use any type of tobacco product: Yes Have you used tobacco products in the last 12 months: Yes Type of Tobacco Use: Cigarettes Does any household member use tobacco: No Alcohol Use: None Drug Use: None Medications Home Medications: No Known Drug Allergies Allergy (Verified 01/07/19 20:28) Labs Result Diagrams: 08/22/21 04:00 08/22/21 04:00 Labs: Laboratory WBC 5.1 X10^3/uL (3.6-10.0) 08/22/21 04:00 RBC 2.73 X10^6/uL (4.7-6.0) L 08/22/21 04:00 Hgb 7.2 g/dL (13.5-18.0) L 08/22/21 04:00 Hct 21.6 % (42.0-54.0) L 08/22/21 04:00 MCV 79.0 fL (80.0-100.0) L 08/22/21 04:00 MCH 26.4 pg (27.0-34.0) L 08/22/21 04:00 MCHC 33.4 g/dL (33.0-35.0) 08/22/21 04:00 RDW 16.9 % (11.6-16.5) H 08/22/21 04:00 Plt Count 177 X10^3/uL (150.0-450.0) 08/22/21 04:00 MPV 7.7 fL (7.4-11.0) 08/22/21 04:00 Neut % (Auto) 60.4 % (42.0-75.0) 08/22/21 04:00 Lymph % (Auto) 26.7 % (21.0-51.0) 08/22/21 04:00 [place] % (Auto) 8.9 % (0.0-13.0) 08/22/21 04:00 Eos % (Auto) 3.3 % (0.9-2.9) H 08/22/21 04:00 Baso % (Auto) 0.7 % (0.2-1.0) 08/22/21 04:00 Neut # (Auto) 3.1 x10^3/uL (2.2-4.8) 08/22/21 04:00 Lymph # (Auto) 1.4 X10^3/uL (1.3-2.9) 08/22/21 04:00 [place] # (Auto) 0.5 x10^3/uL (0.3-0.8) 08/22/21 04:00 Eos # (Auto) 0.2 x10^3/uL (0.0-0.2) 08/22/21 04:00 Baso # (Auto) 0.0 X10^3/uL (0.0-0.1) 08/22/21 04:00 Absolute Nucleated RBC 1.0 /100WBC 08/22/21 04:00 Sodium 141 mmol/L (136-145) 08/22/21 04:00 Corrected Sodium TNP 08/22/21 04:00 Potassium 3.9 mmol/L (3.5-5.1) 08/22/21 04:00 Chloride 108 mmol/L (98-107) H 08/22/21 04:00 Carbon Dioxide 27.8 mmol/L (21-32) 08/22/21 04:00 BUN 14 mg/dL (7-18) 08/22/21 04:00 Creatinine 0.94 mg/dL (0.70-1.30) 08/22/21 04:00 Est GFR (MDRD) Af Amer > 60 (>60) 08/22/21 04:00 Est GFR (MDRD) Non-Af > 60 (>60) 08/22/21 04:00 Glucose 91 mg/dL (65-99) 08/22/21 04:00 Calcium 7.8 mg/dL (8.5-10.1) L 08/22/21 04:00 Corrected Calcium 8.6 mg/dL (8.5-10.1) 08/22/21 04:00 Total Bilirubin 0.40 mg/dL (0.2-1.0) 08/22/21 04:00 AST 20 Units/L (15-37) 08/22/21 04:00 ALT 17 Units/L (12-78) 08/22/21 04:00 Alkaline Phosphatase 55 Units/L (46-116) 08/22/21 04:00 Total Protein 5.4 g/dL (6.4-8.2) L 08/22/21 04:00 Albumin 3.0 g/dL (3.4-5.0) L 08/22/21 04:00 Globulin 2.4 g/dL (2.5-4.5) L 08/22/21 04:00 Albumin/Globulin Ratio 1.3 Ratio (1.1-2.1) 08/22/21 04:00 SARS-CoV-2 (PCR) Negative (NEGATIVE) 08/21/21 21:56 Influenza Type A (PCR) Negative (NEGATIVE) 08/21/21 21:56 Influenza Type B (PCR) Negative (NEGATIVE) 08/21/21 21:56 RSV (PCR) Negative (NEGATIVE) 08/21/21 21:56 Blood Type O POSITIVE 08/21/21 21:56 Antibody Screen Negative 08/21/21 21:56 Crossmatch See Detail 08/21/21 21:56 Review of Systems Constitutional: See HPI Eyes: No Symptoms Reported ENT: No Symptoms Reported Respiratory: No Symptoms Reported Cardiovascular: No Symptoms Reported Gastrointestinal: See HPI Genitourinary: No Symptoms Reported Musculoskeletal: No Symptoms Reported Skin: No Symptoms Reported Neurological: No Symptoms Reported Physical Exam Vital Signs: Temperature 98.0 F Pulse Rate [Right] 63 Pulse Rate 78 Respiratory Rate 20 Blood Pressure [Right Arm] 166/74 Blood Pressure 163/70 O2 Sat by Pulse Oximetry 97 Oriented: Normal, Time, Person and Place Eyes: Normal Ear: Normal Nose: Normal Throat: Normal Respiratory: Clear Throughout Cardiovascular: Normal : Normal Auscultation: Bowel Sounds: Normal Palpation: Normal Tenderness: Normal Skin: Normal Musculoskeletal: Normal Psychiatric: Normal Mood Description: Calm Affect: Anxious Speech Pattern: Clear Assessment/Plan (1) GI bleeding: Narrative Support Text: Admit, transfuse two units packed red blood cells, monitor hemoglobin, Protonix, Will consider repeat upper and lower endoscopy. Will probably need capsule study and coagulation work up. Status: Acute Review H&P Reviewed: Yes Patient was examined?: Yes
[2021-08-22] MEDS ORDERED: CITROMA PO ONE (11:19)
[2021-08-22] MEDS: NS 1,000 ML IV 1,000 ML IV SCH ×2 (11:41→15:51)
--- NOTE | 2021-08-22 14:22 | NOTE.SOAP ---
Soap Note Note for Day of Date of Exam: 08/22/21 Subjective Data Subjective Data: Patient with a history of multiple episodes of GI bleeding with no true etiology . 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 Presents now with weakness and hemoglobin 7. 5. Has received two units of packed red blood cells. Otherwise stable. Objective Data Temperature: 97.6 F Pulse Rate: 63 Respiratory Rate: 20 Blood Pressure: 136/64 O2 Sat by Pulse Oximetry: 98 Objective Data: Benign abdomen. Has recieved 2 units of packed red blood cells. Denies passing further blood per rectum Assessment Assessment: GI bleed Plan Plan: Monitor blood count, sequential exams, bowel prep and colonoscopy tomorrow.
[2021-08-22] MEDS ORDERED: REMERON PO SCH (21:00)
[2021-08-22] MEDS ORDERED: DESYREL PO SCH (21:00)
[2021-08-22] MEDS: APRESOLINE TAB 25 MG PO SCH (21:23)
[2021-08-23] MEDS: NS 1,000 ML IV 1,000 ML IV SCH ×2 (03:54→03:55)
[2021-08-23 05:48] LABS: BASOPHILS % (AUTO) 0.9 % (0.2-1.0); EOSINOPHILS # (AUTO) 0.2 x10^3/uL (0.0-0.2); EOSINOPHILS % (AUTO) 3.2 % (0.9-2.9); HEMATOCRIT 23.1 % (42.0-54.0); HEMOGLOBIN 7.7 g/dL (13.5-18.0); LYMPHOCYTES # (AUTO) 1.3 X10^3/uL (1.3-2.9); LYMPHOCYTES % (AUTO) 25.3 % (21.0-51.0); MEAN CORPUSCULAR HEMOGLOBIN 26.7 pg (27.0-34.0); MEAN CORPUSCULAR HGB CONC 33.3 g/dL (33.0-35.0); MEAN CORPUSCULAR VOLUME 80.3 fL (80.0-100.0); MEAN PLATELET VOLUME 8.1 fL (7.4-11.0); MONOCYTES # (AUTO) 0.4 x10^3/uL (0.3-0.8); MONOCYTES % (AUTO) 6.9 % (0.0-13.0); NEUTROPHILS # (AUTO) 3.4 x10^3/uL (2.2-4.8); NEUTROPHILS % (AUTO) 63.7 % (42.0-75.0); RED BLOOD COUNT 2.88 X10^6/uL (4.7-6.0); RED CELL DISTRIBUTION WIDTH 17.1 % (11.6-16.5); WHITE BLOOD COUNT 5.3 X10^3/uL (3.6-10.0)
[2021-08-23 06:26] LABS: ANISOCYTOSIS SLIGHT; HYPOCHROMASIA SLIGHT; PLATELET MORPHOLOGY COMMENT NORMAL (NORMAL)
[2021-08-23] MEDS ORDERED: NORVASC TAB 10 MG PO SCH (09:00)
[2021-08-23] MEDS ORDERED: TRICOR TAB 160 MG PO SCH ×2 (09:00→21:00)
[2021-08-23] MEDS ORDERED: PROTONIX TAB 40 MG PO SCH (09:00)
[2021-08-23] MEDS ORDERED: NS 500 ML IV 500 ML IV ONE (09:39)
[2021-08-23] MEDS ORDERED: DIPRIVAN VIAL 20 ML ONE (10:02)
--- NOTE | 2021-08-23 10:31 | OR.IMMED ---
IMMEDIATE POST-OP NOTE Immediate Post-Op Note Pre-Op Diagnosis: GI bleeding Post-Op Diagnosis: same. no active bleeding now Procedure: flexible sigmoidoscopy Description of Procedure: see operative note Findings: No blood to descending colon, 70 cm . Procedure terminated due to lack of further insufflation Estimated Blood Loss: 0 Complications: 0 Discharge Progress Notes: to floor , discharge later today Final Diagnosis: GI bleeding resolved
[2021-08-23] MEDS: APRESOLINE TAB 25 MG PO SCH (10:43)
[2021-08-23 13:05] VITALS: BP 142/65
--- NOTE | 2021-08-23 13:20 | W.DIS.FURT ---
Summary of Discharge Discharge Summary of Date Date of Exam: 08/23/21 Admission Date Date of Admission: 08/21/21 Admission Diagnosis Patient Problems (Updated 08/22/21 @ 10:09 by Pop Douglas) GI bleeding (Acute) K92.2 Etiologynunknown Symptomatic anemia (Acute) D64.9 Acute hypokalemia (Acute) E87.6 Hospital Course: This 71 year old male has been evaluated for lower GI bleeding over the last yea r with multiple endoscopies with no obvious etiology. Recently had colonoscopy in [place] by Dr. 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 He presented complaining of bleeding or the rectum and weakness. Hemoglobin was 7. 2. He was admitted and given one unit of packed red blood cells. Post-procedure transfusion hemoglobin was 7. 7. Bowel prep and attempted colonoscopy was carried out . I was able to get to the ascending colon but the insufflator on the equipment did not work therefore I finished. He will discharged home at this time as there is no active bleeding. I encouraged him to follow up with doctor Cristian. I believe he will need a capsule study of the small bowel as well. Vital Signs: Vital Signs (72 hours) 08/22/21 14:28 08/21/21 20:29 08/21/21 20:47 Temperature 97.6 F 98.0 F Pulse Rate 63 73 72 Pulse Rate [Right] Respiratory Rate 20 22 Blood Pressure 136/64 134/62 Blood Pressure [Right Arm] O2 Sat by Pulse Oximetry 98 99 100 Oxygen Delivery Method FIO2% 08/21/21 21:00 08/21/21 21:01 08/21/21 21:01 Temperature Pulse Rate 70 70 Pulse Rate [Right] Respiratory Rate Blood Pressure 114/58 Blood Pressure [Right Arm] O2 Sat by Pulse Oximetry 98 100 Oxygen Delivery Method FIO2% 08/21/21 21:15 08/21/21 21:30 08/21/21 21:30 Temperature Pulse Rate 71 76 Pulse Rate [Right] Respiratory Rate Blood Pressure 138/67 Blood Pressure [Right Arm] O2 Sat by Pulse Oximetry 94 L 99 Oxygen Delivery Method FIO2% 08/21/21 21:45 08/21/21 22:00 08/21/21 22:15 Temperature Pulse Rate 72 78 76 Pulse Rate [Right] Respiratory Rate Blood Pressure Blood Pressure [Right Arm] O2 Sat by Pulse Oximetry 96 97 97 Oxygen Delivery Method FIO2% 08/21/21 22:30 08/21/21 22:45 08/21/21 22:47 Temperature Pulse Rate 78 81 Pulse Rate [Right] Respiratory Rate Blood Pressure 163/70 Blood Pressure [Right Arm] O2 Sat by Pulse Oximetry 97 96 Oxygen Delivery Method FIO2% 08/21/21 22:47 08/21/21 23:00 08/21/21 23:15 Temperature Pulse Rate 81 88 85 Pulse Rate [Right] Respiratory Rate Blood Pressure Blood Pressure [Right Arm] O2 Sat by Pulse Oximetry 97 98 99 Oxygen Delivery Method FIO2% 08/21/21 23:30 08/21/21 23:40 08/22/21 00:00 Temperature 98.0 F 97.5 F L Pulse Rate 78 Pulse Rate [Right] 80 Respiratory Rate 20 20 Blood Pressure Blood Pressure [Right Arm] 164/75 O2 Sat by Pulse Oximetry 97 96 Oxygen Delivery Method Room Air Room Air FIO2% 08/22/21 04:00 08/22/21 00:00 08/22/21 07:00 Temperature 97.7 F Pulse Rate Pulse Rate [Right] 64 Respiratory Rate 18 Blood Pressure Blood Pressure [Right Arm] 127/58 O2 Sat by Pulse Oximetry 100 Oxygen Delivery Method Room Air Room Air Room Air FIO2% 21 21 08/22/21 08:00 08/22/21 12:00 08/22/21 16:00 Temperature 98.0 F 97.6 F 97.7 F Pulse Rate Pulse Rate [Right] 63 63 59 L Respiratory Rate 20 20 20 Blood Pressure Blood Pressure [Right Arm] 166/74 136/64 131/63 O2 Sat by Pulse Oximetry 97 98 97 Oxygen Delivery Method Room Air Room Air Room Air FIO2% 08/22/21 19:00 08/22/21 20:00 08/23/21 00:00 Temperature 97.9 F 97.9 F Pulse Rate Pulse Rate [Right] 61 62 Respiratory Rate 18 20 Blood Pressure Blood Pressure [Right Arm] 145/67 135/64 O2 Sat by Pulse Oximetry 100 96 Oxygen Delivery Method Room Air Room Air Room Air FIO2% 08/23/21 04:00 08/23/21 08:20 08/23/21 08:00 Temperature 98.2 F 98.7 F Pulse Rate Pulse Rate [Right] 59 L 62 Respiratory Rate 20 20 Blood Pressure Blood Pressure [Right Arm] 137/64 147/66 O2 Sat by Pulse Oximetry 96 96 Oxygen Delivery Method Room Air Room Air Room Air FIO2% 08/23/21 12:00 08/23/21 10:40 08/23/21 11:05 Temperature 98.0 F 97.6 F 97.6 F Pulse Rate Pulse Rate [Right] 71 56 L 64 Respiratory Rate 18 18 20 Blood Pressure Blood Pressure [Right Arm] 142/65 139/65 125/61 O2 Sat by Pulse Oximetry 99 98 100 Oxygen Delivery Method Room Air Room Air Room Air FIO2% 08/23/21 11:20 08/23/21 11:35 08/23/21 10:50 Temperature 97.8 F 98.0 F 97.6 F Pulse Rate Pulse Rate [Right] 63 64 63 Respiratory Rate 18 18 18 Blood Pressure Blood Pressure [Right Arm] 139/61 138/63 141/65 O2 Sat by Pulse Oximetry 100 98 100 Oxygen Delivery Method Room Air Room Air Room Air FIO2% Labs: Laboratory Last Values WBC 5.3 X10^3/uL (3.6-10.0) 08/23/21 04:25 RBC 2.88 X10^6/uL (4.7-6.0) L 08/23/21 04:25 Hgb 7.7 g/dL (13.5-18.0) L 08/23/21 04:25 Hct 23.1 % (42.0-54.0) L 08/23/21 04:25 MCV 80.3 fL (80.0-100.0) 08/23/21 04:25 MCH 26.7 pg (27.0-34.0) L 08/23/21 04:25 MCHC 33.3 g/dL (33.0-35.0) 08/23/21 04:25 RDW 17.1 % (11.6-16.5) H 08/23/21 04:25 Plt Count 171 X10^3/uL (150.0-450.0) 08/23/21 04:25 Plt Count Comment Adequate (ADEQUATE) 08/23/21 04:25 MPV 8.1 fL (7.4-11.0) 08/23/21 04:25 Neut % (Auto) 63.7 % (42.0-75.0) 08/23/21 04:25 Lymph % (Auto) 25.3 % (21.0-51.0) 08/23/21 04:25 [place] % (Auto) 6.9 % (0.0-13.0) 08/23/21 04:25 Eos % (Auto) 3.2 % (0.9-2.9) H 08/23/21 04:25 Baso % (Auto) 0.9 % (0.2-1.0) 08/23/21 04:25 Neut # (Auto) 3.4 x10^3/uL (2.2-4.8) 08/23/21 04:25 Lymph # (Auto) 1.3 X10^3/uL (1.3-2.9) 08/23/21 04:25 [place] # (Auto) 0.4 x10^3/uL (0.3-0.8) 08/23/21 04:25 Eos # (Auto) 0.2 x10^3/uL (0.0-0.2) 08/23/21 04:25 Baso # (Auto) 0.0 X10^3/uL (0.0-0.1) 08/23/21 04:25 Absolute Nucleated RBC 0.4 /100WBC 08/23/21 04:25 Plt Morphology Comment Normal (NORMAL) 08/23/21 04:25 RBC Morphology Abnormal (NORMAL) 08/23/21 04:25 Hypochromasia Slight A 08/23/21 04:25 Anisocytosis Slight A 08/23/21 04:25 Sodium 141 mmol/L (136-145) 08/22/21 04:00 Corrected Sodium TNP 08/22/21 04:00 Potassium 3.9 mmol/L (3.5-5.1) 08/22/21 04:00 Chloride 108 mmol/L (98-107) H 08/22/21 04:00 Carbon Dioxide 27.8 mmol/L (21-32) 08/22/21 04:00 BUN 14 mg/dL (7-18) 08/22/21 04:00 Creatinine 0.94 mg/dL (0.70-1.30) 08/22/21 04:00 Est GFR (MDRD) Af Amer > 60 (>60) 08/22/21 04:00 Est GFR (MDRD) Non-Af > 60 (>60) 08/22/21 04:00 Glucose 91 mg/dL (65-99) 08/22/21 04:00 Calcium 7.8 mg/dL (8.5-10.1) L 08/22/21 04:00 Corrected Calcium 8.6 mg/dL (8.5-10.1) 08/22/21 04:00 Total Bilirubin 0.40 mg/dL (0.2-1.0) 08/22/21 04:00 AST 20 Units/L (15-37) 08/22/21 04:00 ALT 17 Units/L (12-78) 08/22/21 04:00 Alkaline Phosphatase 55 Units/L (46-116) 08/22/21 04:00 Total Protein 5.4 g/dL (6.4-8.2) L 08/22/21 04:00 Albumin 3.0 g/dL (3.4-5.0) L 08/22/21 04:00 Globulin 2.4 g/dL (2.5-4.5) L 08/22/21 04:00 Albumin/Globulin Ratio 1.3 Ratio (1.1-2.1) 08/22/21 04:00 SARS-CoV-2 (PCR) Negative (NEGATIVE) 08/21/21 21:56 Influenza Type A (PCR) Negative (NEGATIVE) 08/21/21 21:56 Influenza Type B (PCR) Negative (NEGATIVE) 08/21/21 21:56 RSV (PCR) Negative (NEGATIVE) 08/21/21 21:56 Blood Type O POSITIVE 08/21/21 21:56 Antibody Screen Negative 08/21/21 21:56 Crossmatch See Detail 08/21/21 21:56 Reason For Visit: SYMPTOMATIC ANEMIA, GI BLEED Discharge Date Discharge Date: 08/23/21 Discharge Diagnosis All Active Problems (Updated 08/22/21 @ 10:09 by Pop Douglas) Hypochromic microcytic anemia (Acute) Azotemia (Acute) Anemia (Acute) GI bleed (Acute) Hypertension (Acute) Shortness of breath (Acute) Pneumonia (Acute) Abdominal pain (Acute) Acute viral syndrome (Acute) Anemia (Acute) GI bleeding (Acute) Symptomatic anemia (Acute) Acute hypokalemia (Acute) Plan of Treatment: Continue with present treatment and follow up plan. Pt is to keep follow up appointment as instructed and take medications as ordered. Discharge Medications Discharge Medications: No Known Drug Allergies Allergy (Verified 01/07/19 20:28) CONTINUE taking the following medications ferrous sulfate 325 mg (65 mg iron) tablet (Feosol) 325 mg PO BID 08/23/21 [History] fluoxetine 20 mg capsule 1 cap PO QDAY 08/23/21 [History] meloxicam 15 mg tablet 1 tab PO QDAY 08/23/21 [History] meloxicam 15 mg tablet 1 tab PO QDAY 08/23/21 [History] Discharge Disposition Assessment: see hospital course above Discharge Plan Discharge Plan Hospital Course: This 71 year old male has been evaluated for lower GI bleeding over the last year with multiple endoscopies with no obvious etiology. Recently had colonoscopy in [place] by Dr. VENTURA and had a clip placed over an AV m alformation in the cecum. He presented complaining of bleeding or the rectum and weakness. Hemoglobin was 7. 2. He was admitted and given one unit of packed red blood cells. Post-procedure transfusion hemoglobin was 7. 7. Bowel prep and attempted colonoscopy was carried out . I was able to get to the ascending colon but the insufflator on the equipment did not work therefore I finished. He will discharged home at this time as there is no active bleeding. I encouraged him to follow up with doctor Ventura. I believe he will need a capsule study of the small bowel as well. Patient Disposition: 01 HOME, SELF-CARE Condition: Stable Health Concerns: Post Hospitalization: new medications and changes needed to prevent readmission or further decline. Pt educated and given instructions on all concerns. Care Plan Goals: Problem: Fluid Volume Deficit Goal: Maintain/Improved Adequate hydration. Instructions: Follow provided instructions. Follow up with primary physician as directed. Contact primary care physician or report to the closest Emergency Room if condition worsens. Plan of Treatment: Continue with present treatment and follow up plan. Pt is to keep follow up appointment as instructed and take medications as ordered. Assessment: see hospital course above Prescription drug monitoring program results: PDMP reviewed and no concerns identified Prescriptions: No Action meloxicam 15 mg tablet 1 tab PO QDAY meloxicam 15 mg tablet 1 tab PO QDAY ferrous sulfate [Feosol] 325 mg (65 mg iron) Tablet 325 mg PO BID fluoxetine 20 mg capsule 1 cap PO QDAY trazodone 50 mg Tablet 50 mg PO QHS hydralazine 25 mg Tablet 25 mg PO BID amlodipine 10 mg Tablet 10 mg PO DAILY pantoprazole 40 mg Tablet,Delayed Release (Dr/Ec) 40 mg PO BID mirtazapine 15 mg Tablet 15 mg PO QHS fenofibrate 160 mg Tablet 160 mg PO QHS Orders to Discharge Patient Discharge Orders: Discharge (Routine); Ordered 08/23/21 Ordered By: Pop Douglas Follow ups/Referrals Follow ups/Referrals: SANDRA TRACY [Primary Care Provider] - 1 WEEK Pop Douglas [STAFF PHYSICIAN] - 1 WEEK Instructions Instructions: Steps to Quit Smoking, [id number], Fall Prevention in the Home, Adult, Kktq-[id number]-[id number], Anemia, Colonoscopy, Adult, Care After, Lnqe-zr-[id number], Weakness, Vhqe-oj-Ahqe, Gastrointestinal Bleeding, Oevc-ng-Bazo Stand Alone Forms: Precautions for COVID19, [facility], Patient Portal, Social Distancing Patient Education Addl Reference Links: Anemia [email or web address] rchtype=[email or web address]=en&patientPerson.administrat iveGenderCode.c=M&patientPerson.administrativeGenderCode.dn=Male&age.v.v=71&age. v.u=a&performer=PROV&informationRecipient=PAT&performer.languageCode.c=en&mainSe archCriteria.v.c=[id number]&mainSearchCri teria.v.cs=[id number]&mainSearchCriteria.v.dn=Anemia&mainSearchCrite sherrell.v.x3=336.9&mainSearchCriteria.v.cs1=[id number]&mainSearchCriter ia.v.dn1=Anemia&mainSearchCriteria.v.c2= D64.9&mainSearchCriteria.v.cs2=[id number]&mainSearchCriteria.v.dn2=A nemia&v=[id number]
--- NOTE | 2021-08-25 01:08 | DR.OPNOTE ---
OP NOTE Pre-Op Diagnosis: GI bleeding Post-Op Diagnosis: same , resolved Procedure Date Date Of Procedure: 08/22/21 Procedure: PROCEDURE: Flexible sigmoidoscopy NARRATIVE : The patient was taken to the endoscopy suite and placed in the left lateral position. He was given intravenous sedation which was supervised by myself. Time out for the procedure obtained . The flexible colonoscope introduced into the anus without difficulty. Insufflation was carried out and I was able to get to the descending colon. At this point the insufflator stopped working and I was unable to advance the scope safety. On removing the scope there was no active bleeding or abnormality moted . Patient tolerated this very well. Anesthesia Comment: MAC Findings: Planned flexible colonoscopy, only did flexible sigmoidoscopy as the insufflator stopped working, No active bleeding through the sigmoid colon to the descending colon Specimen/Pathology: none Type of Fluids Used:: Lactated Ringers EBL: 0 cc Complications:: none Needle/Sponge Count:: correct Disposition/Condition: Pt. tolerated procedure without difficulty. Taken to [facility].
== END 2021-08-23 14:00 | disposition home or self-care (01) ==
LOC: MED/SURG 20:28 → ER 20:28 → MED/SURG 23:41
PROVIDERS: ADMIT Surgery; ATTEND Surgery
DX: Z20.822 Contact with and (suspected) exposure to COVID-19; K92.2 Gastrointestinal hemorrhage, unspecified; Z98.890 Other specified postprocedural states; R53.1 Weakness; E87.6 Hypokalemia; I10 Essential (primary) hypertension; D64.89 Other specified anemias